=== PATIENT | female | born 1995 | race African-American/Black ===

== ENCOUNTER 2023-12-03 11:42 | Outpatient (CLI) | payer OTHER, SELFPAY ==
[2023-12-03 12:41] LABS: Basophils Percent Auto 0.4 % (0.2-1.2); Eosinophils Absolute Auto 0.1 K/mm3 (0-0.3); Eosinophils Percent Auto 1.5 % (0-4.4); Hematocrit 39.4 % (37.0-47.0); Hemoglobin 12.3 g/dL (12.0-15.0); Immature Granulocyte Absolute 0.02 K/mm3 (0.00-0.031); Immature Granulocyte Percent A 0.3 % (0-0.5); Lymphocytes Absolute Auto 1.43 K/mm3 (0.9-3.2); Lymphocytes Percent Auto 19.6 % (18.3-44.2); Mean Corpuscular HGB Conc 31.2 g/dl (32-36); Mean Corpuscular Hemoglobin 26.9 pg (26-34); Mean Corpuscular Volume 86.2 fl (80-100); Mean Platelet Volume 9.5 fl (7.4-10.4); Monocytes Absolute Auto 0.4 K/mm3 (0.1-0.6); Monocytes Percent Auto 5.5 % (2.6-8.5); Neutrophils Absolute Auto 5.3 K/mm3 (1.3-6.7); Neutrophils Percent Auto 72.7 % (45.5-73.1); Platelet Count Result 285 k/mm3 (150-375); Red Blood Count 4.57 M/mm3 (4.2-5.4); Red Cell Distribution Width 13.1 % (11.5-14.5); White Blood Count 7.3 K/mm3 (4.5-10.0)
[2023-12-03 13:32] LABS: HIV 1/2 Ab P24 Ag Result Negative (Negative)
[2023-12-03 13:52] LABS: Hepatitis B Surface Antigen Negative (Negative); Rubella IgG Antibody 41.2 IU/ML
[2023-12-04 12:59] LABS: Rapid Plasma Reagin Non-Reactive (NonReactive)
== END 2023-12-03 11:43 | disposition home or self-care (01) ==
PROVIDERS: PCP Family Medicine; Visit Provider Obstetrics & Gynecology
DX: N91.2 Amenorrhea, unspecified (principal)
CPT/HCPCS: 36415; 84702; 85025; 85660; 86592; 86703; 86762; 86787; 87086; 87340; G0432

== ENCOUNTER 2023-12-18 16:57 | Outpatient (CLI) | payer OTHER, SELFPAY ==
[2023-12-30 17:47] LABS: CF Result NEGATIVE (NEGATIVE); Ethnicity NG
[2024-01-02 16:22] LABS: SMA Results Received Yes
== END 2023-12-18 16:58 | disposition home or self-care (01) ==
LOC: ANHLAB 16:58
PROVIDERS: PCP Family Medicine; Visit Provider Obstetrics & Gynecology
DX: N91.2 Amenorrhea, unspecified (principal)
CPT/HCPCS: 36415; 81220; 81329; 86644; 86747; 86850; 86900; 86901

== ENCOUNTER 2024-02-27 14:51 | Outpatient (CLI) | payer OTHER, SELFPAY ==
--- NOTE | ~2024-02-27 | US_ITS ---
EXAMINATION: US OB /maternal detail DATE: 02/27/2024 15:23 INDICATION: Encounter for supervision of normal . TECHNIQUE: Real-time ultrasound of the pelvis was performed. COMPARISON: Ultrasound 12/17/2023 FINDINGS: There is a single living fetus in vertex presentation. The placenta is posterior. heart rate i s 168 beats per minute (bpm). The cervical length is 4.2 cm on transabdominal images, which is normal . The amniotic fluid volume is subjectively normal. The following biometric data were obtained: Biparietal diameter (BPD): 4.6 cm; head circumference (HC): 16.9 cm; abdominal circumference (AC): 13 .8 cm; femur length (FL): 3.1 cm. These measurements are concordant. Estimated weight is 289 g +/- 43 g, which correlates with the 35th percentile when 07/19/24 is u sed as estimated date of delivery. As single measurements, these parameters are each equal to the following estimated gestational ages: BPD: 19 weeks 6 days. HC: 19 weeks 4 days. AC: 19 weeks 2 days. FL: 19 weeks 3 days. estimated gestational age based solely on measurements from this exam is 19 weeks 4 days +/- 1 weeks 3 days. The cerebral ventricles, cerebellum, cisterna magna, nuchal fold, and visualized portions of the spin e are normal. The heart is normal. The diaphragm, stomach, kidneys, and bladder are normal. There are two umbilical arteries to yield a 3-vessel cord. The cord insertion is normal. IMPRESSION: 1. Single living fetus in vertex presentation. 2. Estimated weight is 289 g +/- 43 g, which correlates with the 35th percentile when 07/19/24 is used as estimated date of delivery. 3. Normal anatomic survey. Reviewed, dictated and finalized at location E. IMPRESSION: 1. Single living fetus in vertex presentation. 2. Estimated weight is 289 g +/- 43 g, which correlates with the 35th pe rcentile when 07/19/24 is used as estimated date of delivery. 3. Normal anatomic survey.
== END 2024-02-27 14:52 ==
PROVIDERS: PCP Family Medicine; Visit Provider Student in an Organized Health Care Education/Training Program
DX: Z34.90 Encounter for supervision of normal pregnancy, unspecified, unspecified trimester (principal)
CPT/HCPCS: 76805

== ENCOUNTER 2024-04-26 14:37 | Outpatient (CLI) | payer OTHER, SELFPAY ==
[2024-04-26 16:12] LABS: Basophils Percent Auto 0.3 % (0.2-1.2); Eosinophils Absolute Auto 0.1 K/mm3 (0-0.3); Eosinophils Percent Auto 0.8 % (0-4.4); Hematocrit 32.2 % (37.0-47.0); Hemoglobin 10.4 g/dL (12.0-15.0); Immature Granulocyte Absolute 0.17 K/mm3 (0.00-0.031); Immature Granulocyte Percent A 1.8 % (0-0.5); Lymphocytes Absolute Auto 1.05 K/mm3 (0.9-3.2); Mean Corpuscular HGB Conc 32.3 g/dl (32-36); Mean Corpuscular Hemoglobin 28.4 pg (26-34); Monocytes Absolute Auto 0.3 K/mm3 (0.1-0.6); Monocytes Percent Auto 3.6 % (2.6-8.5); Neutrophils Absolute Auto 7.9 K/mm3 (1.3-6.7); Neutrophils Percent Auto 82.5 % (45.5-73.1); Platelet Count Result 222 k/mm3 (150-375); Red Blood Count 3.66 M/mm3 (4.2-5.4); Red Cell Distribution Width 13.9 % (11.5-14.5); White Blood Count 9.5 K/mm3 (4.5-10.0)
[2024-04-26 16:38] LABS: Glucose 1 Hour PP 50gm Dose 164 mg/dL
[2024-04-26 17:39] LABS: HIV 1/2 Ab P24 Ag Result Negative (Negative)
[2024-04-27 08:41] LABS: Rapid Plasma Reagin Non-Reactive (NonReactive)
== END 2024-04-26 14:38 | disposition home or self-care (01) ==
LOC: ANHLAB 14:41
PROVIDERS: PCP Family Medicine; Visit Provider Obstetrics & Gynecology
DX: Z34.90 Encounter for supervision of normal pregnancy, unspecified, unspecified trimester (principal); Z3A.00 Weeks of gestation of pregnancy not specified
CPT/HCPCS: 36415; 82947; 85025; 86592; 86703; G0432

== ENCOUNTER 2024-04-29 07:25 | Outpatient (CLI) | payer OTHER, SELFPAY ==
[2024-04-29 08:01] LABS: Glucose Fasting Gestational 95 mg/dL (>/=95)
[2024-04-29 09:21] LABS: Glucose 1 Hour Gest 195 mg/dL (>/=180)
[2024-04-29 11:12] LABS: Glucose 2 Hour Gest 191 mg/dL (>/= 155)
[2024-04-29 11:51] LABS: Glucose 3 Hour Gest 114 mg/dL (>/=140)
== END 2024-04-29 07:26 | disposition home or self-care (01) ==
LOC: ANHLAB 07:27
PROVIDERS: PCP Family Medicine; Visit Provider Obstetrics & Gynecology
DX: Z34.90 Encounter for supervision of normal pregnancy, unspecified, unspecified trimester (principal); Z3A.00 Weeks of gestation of pregnancy not specified
CPT/HCPCS: 36415; 82951; 82952

== ENCOUNTER 2024-05-26 16:36 | Outpatient (RCR) | payer OTHER, SELFPAY ==
--- NOTE | ~2024-05-26 | US_ITS ---
EXAMINATION: US OB BPP wo non-stress DATE: 05/26/2024 17:46 INDICATION: Fall during third trimester . Possible cardiac decelerations on nonstress exam. TECHNIQUE: Real-time pelvic ultrasound was performed. The interpreting radiologist was not present fo r the study. COMPARISON: None. FINDINGS: There is a single living fetus in vertex presentation. The placenta is posterior. heart rate i s variable with mean of 136 (108-170) beats per minute (bpm). Biophysical profile performed by the technologist: breathing (30 sec sustained breathing in 30 minutes): 2 out of 2 movement (3 gross body movements in 30 minutes): 2 out of 2 tone (one episode of qephrii-ifnwaqzyd-uplmpht limb movement): 2 out of 2 Amniotic fluid pocket (2 cm): 2 out of 2 Total score: 8 out of 8 IMPRESSION: 1. Single living fetus in vertex presentation with highly variable heart rate of 108-170 bpm. 2. Biophysical profile 8 out of 8. Reviewed, dictated and finalized at location A.
[2024-05-26 17:16] VITALS: BP 113/62; PULSE 78
== END 2024-08-16 09:55 | disposition home or self-care (01) ==
LOC: ANHOBOP 16:36
PROVIDERS: PCP Family Medicine; Visit Provider Obstetrics & Gynecology
DX: O36.8330 Maternal care for abnormalities of the fetal heart rate or rhythm, third trimester, not applicable or unspecified (principal)
CPT/HCPCS: 59025; 76819

== ENCOUNTER 2024-06-12 08:02 | Observation (INO) | payer OTHER, SELFPAY ==
[2024-06-12 08:30] VITALS: BP 123/71; PULSE 86
--- NOTE | 2024-06-12 08:44 | OBADM ---
This patient, Emily Glez, admitted to the OB room OB Post 116 for observation. Patient/family oriented to hospital policies and general routines including ID bracelet, bed and alarms, visiting hours, pain management, procedures, bathroom and other care routines, personal items, smoking policy, room service/diet, and visiting hours. Patient/Family are encouraged to report perceived risks to care and to ask questions if they do not understand what they are told or what they should do.
[2024-06-12 09:15] LABS: OBXCEM ROM Plus Negative
--- NOTE | 2024-07-01 13:43 | PM.OBTRLD ---
OB - Triage/Final Diagnosis Visit Information Comments/Additional reasons for admission: I have assessed the risk for this patient, Emily Rodriguez, and determined that she would benefit from observation care. Evaluation Laboratory results: Laboratory Tests 06/12/24 08:48 Membranes Rupture Rom plus negative Final Diagnosis (1) Threatened premature labor: Code(s): O47.00 - False labor before 37 completed weeks of gestation, unspecified trimester Status: Acute
== END 2024-06-12 09:15 | disposition home or self-care (01) ==
PROVIDERS: Admitting Provider Obstetrics & Gynecology; PCP Family Medicine; Visit Provider Obstetrics & Gynecology
DX: O47.00 False labor before 37 completed weeks of gestation, unspecified trimester (principal)
CPT/HCPCS: 84112; G0378; G0379

== ENCOUNTER 2024-06-15 13:35 | Emergency (ER) | payer OTHER, SELFPAY ==
[2024-06-15 14:06] VITALS: BP 110/75; PULSE 99; RESP 16; TEMP 36.3; O2SAT 99
[2024-06-15 14:50] LABS: EDINFLUASCREEN Negative; EDINFLUBSCREEN Negative; EDSTREPNEGPOS1 Negative
--- NOTE | 2024-06-19 08:31 | ED.URI ---
HPI - URI/Sore Throat General Chief Complaint: Upper Respiratory Infection Stated Complaint: sore throat/ heachache/ body ache Time Seen by Provider: 06/15/24 14:21 Source: patient, RN notes reviewed and old records reviewed Mode of arrival: ambulatory Limitations: no limitations History of Present Illness HPI Narrative: 29-year-old female to [facility] with complaint of body aches, chills headache, sore throat, congestion for 8 days. Patient reports that she was initially febrile but been without fever for the 48 hours. Patient has attempted to treat her symptoms home with Tylenol with some relief. Patient is currently 35 weeks . Patient denies any difficulties with her and states that she sees her OBGYN regularly. Patient denies shortness of breath, abdominal pain, decreased movement, urinary changes, bowel changes, cough, difficulty swallowing. Patient is able to tolerate fluids by mouth. Patient resting in exam room in no acute distress. Patient appears tired and uncomfortable. Respirations even and nonlabored. Patient able to speak in full sentences without difficulty. Related Data Home Medications Medication Instructions Recorded Confirmed albuterol sulfate 90 mcg/actuation 1 inh inhalation Q4-6H PRN 03/03/23 06/15/24 breath activated powder inhaler Shortness Of Breath Or Wheezing buspirone 5 mg tablet 5 mg PO BID 03/03/23 06/15/24 hydroxyzine HCl 25 mg tablet 25 mg PO BID PRN Anxiety 03/03/23 06/15/24 famotidine 20 mg tablet (Pepcid) 20 mg PO DAILY 04/29/24 06/15/24 magnesium oxide 400 mg PO DAILY 04/29/24 06/15/24 Allergies Allergy/AdvReac Type Severity Reaction Status Date / Time No Known Allergies Allergy Verified 06/09/24 15:50 Review of Systems Review of Systems: All systems reviewed & are unremarkable except as noted in HPI and below Constitutional: Constitutional: Reports as per HPI, Reports body ache(s), Reports chills and Reports headache(s) Eyes: Eyes: Reports no additional eye complaints ENT: Reports as per HPI and Reports sore throat Cardiovascular: Cardiovascular: Reports no additional cardiovascular complaints, Denies chest pain and Denies dyspnea Respiratory: Respiratory: Reports no additional respiratory complaints, Denies cough and Denies dyspnea Musculoskeletal: Musculoskeletal: Reports no additional musculoskeletal complaints Neurologic: Reports system reviewed and no additional complaints, except as documented Psychiatric: Psychiatric: Reports no additional psychiatric complaints PMFSH Past Medical History Medical History Anxiety and depression Asthma Fibromyalgia Family History Family History Grandparent Carcinoma of colon maternal grandmother Cervical cancer maternal grandmother Mother Diabetes mellitus Hepatitis C Father Glaucoma Social History Social History Smoking status: Never smoker Second hand tobacco smoke exposure: No Alcohol intake: former Alcohol use details: 3-4 month Substance use: former Substance use type: marijuana Other substance usage details: 1-2 month Last use: 07/2023 Do You Feel Safe in your Home?: Yes Lack of Transportation: No Lack of Food: Never True Current Housing: I Have Housing Concerned About Future Housing: No Difficulty Paying Gas/Electric Bills: No Difficulty Paying for Meds: No Currently Unemployed: No Education: Bachelor's Degree Difficulty w/ Childcare or Family Care: Decline to Answer Living arrangements: other Additional living arrangements comments: engaged Occupation/Education: occupation 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
== END 2024-06-15 15:32 | disposition home or self-care (01) ==
PROVIDERS: Emergency Provider Nurse Practitioner Family; PCP Family Medicine
DX: O98.513 Other viral diseases complicating pregnancy, third trimester (principal); U07.1 COVID-19; O99.513 Diseases of the respiratory system complicating pregnancy, third trimester; J45.909 Unspecified asthma, uncomplicated; O99.343 Other mental disorders complicating pregnancy, third trimester; F41.9 Anxiety disorder, unspecified; F32.A Depression, unspecified; O99.891 Other specified diseases and conditions complicating pregnancy; M79.7 Fibromyalgia; Z3A.35 35 weeks gestation of pregnancy
CPT/HCPCS: 87426; 87804; 87880; 99213; G0463

== ENCOUNTER 2024-06-16 16:51 | Emergency (ER) | payer OTHER, SELFPAY ==
--- NOTE | ~2024-06-16 | XR_ITS ---
EXAMINATION: XR chest 1V DATE: 06/16/2024 20:39 INDICATION: COVID-19 positive. Third trimester of . TECHNIQUE: A single frontal view of the chest was obtained. COMPARISON: None. FINDINGS: There is no pneumonia, pleural effusion, or pneumothorax. The heart size is normal. IMPRESSION: 1. No acute cardiopulmonary disease. Reviewed, dictated and finalized at location A.
[2024-06-16 16:54] VITALS: BP 114/72; PULSE 104; RESP 18; TEMP 36.7; O2SAT 100
[2024-06-16 19:24] VITALS: BP 113/76; PULSE 103; RESP 20; TEMP 36.8; O2SAT 100
--- NOTE | 2024-06-16 19:47 | ECG_ITS ---
Test Date: 2024-06-16 22:25:31 Measurements Intervals [place] Rate: 96 P: 69 [place]: 155 QRS: 76 QRSD: 91 T: 5 QT: 358 QTc: 455 Interpretive Statements SINUS RHYTHM BORDERLINE ST-T WAVE ABNORMALITY- INFERIOR LEADS BORDERLINE ECG No previous ECG available for comparison Electronically Signed On 06-17-2024 05:26:13 CDT by [place] Ansari D.O.
[2024-06-16] MEDS: ACETAMINOPHEN 500 MG TABLET 1000 MG PO (21:04)
[2024-06-16] MEDS: SODIUM CHLORIDE 0.9% IV 2,000 ML 999 ML IV CONT (21:30)
[2024-06-16 21:32] LABS: Basophils Percent Auto 0.5 % (0.2-1.2); Eosinophils Absolute Auto 0.3 K/mm3 (0-0.3); Eosinophils Percent Auto 3.9 % (0-4.4); Hematocrit 37.4 % (37.0-47.0); Hemoglobin 12.1 g/dL (12.0-15.0); Immature Granulocyte Percent A 1.1 % (0-0.5); Lymphocytes Absolute Auto 0.96 K/mm3 (0.9-3.2); Mean Corpuscular HGB Conc 32.4 g/dl (32-36); Mean Corpuscular Hemoglobin 28.5 pg (26-34); Mean Corpuscular Volume 88.2 fl (80-100); Mean Platelet Volume 10.3 fl (7.4-10.4); Monocytes Absolute Auto 0.5 K/mm3 (0.1-0.6); Monocytes Percent Auto 5.4 % (2.6-8.5); Neutrophils Absolute Auto 6.8 K/mm3 (1.3-6.7); Neutrophils Percent Auto 78.1 % (45.5-73.1); Platelet Count Result 164 k/mm3 (150-375); Red Blood Count 4.24 M/mm3 (4.2-5.4); Red Cell Distribution Width 14.5 % (11.5-14.5); White Blood Count 8.7 K/mm3 (4.5-10.0)
[2024-06-16 21:43] LABS: Alanine Aminotransferase 18 U/L (6-35); Albumin Level 4.1 g/dL (3.5-5.1); Alkaline Phosphatase 125 U/L (38-126); Anion Gap 12 mmol/L (4-12); Aspartate Amino Transferase 28 U/L (14-36); Bilirubin,Total 0.8 mg/dL (0.2-1.3); Blood Urea Nitrogen 5 mg/dL (7-17); Calcium 9.4 mg/dL (8.4-10.2); Carbon Dioxide 20 mmol/L (22-30); Chloride 99 mmol/L (98-107); Estimated CRCL calculation 133 ml/min; Estimated Glomerular Filt Rate > 60; Glucose 71 mg/dL (65-110); Potassium 3.8 mmol/L (3.4-5.0); Sodium 131 mmol/L (137-145)
[2024-06-16 21:44] LABS: Add Urine Microscopic? YES; Appearance Urine Cloudy (Clear); Bacteria Urine 3+ /hpf; Bilirubin Urine Negative (Negative); Blood Urine Negative (Negative); Budding Yeast Urine Present /hpf; Color Urine Yellow (Yellow); Glucose Urine UA Negative (Negative); Ketones Urine 3+ mg/dL (Negative); Leukocyte Esterase Ur 1+ LEU/UL (Negative); Need Manual Microscopic Reviewed; Nitrate Urine Negative (Negative); Non Pathogenic Casts 0-2; Protein Urine Negative (Negative); Specific Grav Ur 1.015 (1.001-1.035); Squamous Epithelial Cell Urine Occasional /hpf (Few); Urobilinogen Urine 0.2 mg/dL (<2.0)
[2024-06-16 22:32] VITALS: BP 121/78; PULSE 88; RESP 20; TEMP 37.1; O2SAT 98
--- NOTE | 2024-06-16 23:28 | ED.GENADULT ---
HPI - General Adult General Chief complaint: Upper Respiratory Infection Stated complaint: COVID+ yesterday Time Seen by Provider: 06/16/24 19:46 History of Present Illness HPI narrative: This is a 29-year-old female 353 days gestation presenting for positive COVID. She has not feeling well 4 days. She then got RSV Tdap vaccines for . She then was diagnosed with COVID several days later. Symptoms include body aches congestion dyspnea on exertion and shallow breathing. She has been febrile but not for the last day or 2. She has been taking Tylenol with relief. She has also had diarrhea but no nausea vomiting. No lower abdominal pain vaginal bleeding got fluids. She feels the baby moving is normal. Related Data Home Medications Medication Instructions Recorded Confirmed albuterol sulfate 90 mcg/actuation 1 inh inhalation Q4-6H PRN 03/03/23 06/15/24 breath activated powder inhaler Shortness Of Breath Or Wheezing buspirone 5 mg tablet 5 mg PO BID 03/03/23 06/15/24 hydroxyzine HCl 25 mg tablet 25 mg PO BID PRN Anxiety 03/03/23 06/15/24 famotidine 20 mg tablet (Pepcid) 20 mg PO DAILY 04/29/24 06/15/24 magnesium oxide 400 mg PO DAILY 04/29/24 06/15/24 Allergies Allergy/AdvReac Type Severity Reaction Status Date / Time No Known Allergies Allergy Verified 06/09/24 15:50 [facility] Past Medical History Medical History Anxiety and depression Asthma Fibromyalgia Family History Family History Grandparent Carcinoma of colon maternal grandmother Cervical cancer maternal grandmother Mother Diabetes mellitus Hepatitis C Father Glaucoma Social History Social History Smoking status: Never smoker Second hand tobacco smoke exposure: No Alcohol intake: former Alcohol use details: 3-4 month Substance use: former Substance use type: marijuana Other substance usage details: 1-2 month Last use: 07/2023 Do You Feel Safe in your Home?: Yes Lack of Transportation: No Lack of Food: Never True Current Housing: I Have Housing Concerned About Future Housing: No Difficulty Paying Gas/Electric Bills: No Difficulty Paying for Meds: No Currently Unemployed: No Education: Bachelor's Degree Difficulty w/ Childcare or Family Care: Decline to Answer Living arrangements: other Additional living arrangements comments: engaged Occupation/Education: occupation 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 Head: atraumatic. EYES: EOMI, NOSE: Atraumatic NECK: Trachea midline RESPIRATORY: No increased rate of breathing clear to auscultation CARDIOVASCULAR: RRR, ABDOMINAL: Gravid soft nontender MUSCULOSKELETAl: No obvious deformities NEURO: Alert. Moving 4/4 extremities SKIN:: Warm, dry. Normal color PSYCHIATRIC: Normal affect Course Vital Signs Vital signs: Vital Signs Temperature 98.1 F 06/16/24 16:54 Pulse Rate 104 H 06/16/24 16:54 Respiratory Rate 18 06/16/24 16:54 Blood Pressure 114/72 06/16/24 16:54 Pulse Oximetry 100 06/16/24 16:54 Oxygen Delivery Room Air 06/16/24 16:54 Temperature 98.8 F 06/16/24 22:32 Pulse Rate 88 06/16/24 22:32 Respiratory Rate 20 06/16/24 22:32 Blood Pressure 121/78 06/16/24 22:32 Pulse Oximetry 98 06/16/24 22:32 Oxygen Delivery Room Air 06/16/24 21:16 Medical Decision Making MDM Narrative Medical decision making narrative: -Course: 29-year-old female presenting with viral symptoms. She was given fluid resuscitation and Tylenol with improvement. Chest x-ray Chest Urine indicative infection given her she will be treated for U
[2024-06-16 23:40] VITALS: PULSE 94; RESP 20; O2SAT 98
[2024-06-17 00:13] LABS: Influenza A QL RT-PCR Negative (Negative); Influenza B QL RT-PCR Negative (Negative); RSV RNA, RT-PCR Negative (Negative); SARS-CoV-2 RNA PCR Positive (Negative)
== END 2024-06-16 23:40 | disposition home or self-care (01) ==
PROVIDERS: Emergency Provider Emergency Medicine; PCP Family Medicine
DX: O98.519 Other viral diseases complicating pregnancy, unspecified trimester (principal); U07.1 COVID-19
CPT/HCPCS: 36415; 71045; 80053; 81001; 85025; 87086; 87637; 93005; 96360; 96361; 99283; A9270; J7030

== ENCOUNTER 2024-06-28 15:17 | Observation (INO) | payer OTHER, SELFPAY ==
[2024-06-28 16:00] VITALS: TEMP 37.4
[2024-06-28 16:21] VITALS: BMI 31.5
[2024-06-28 16:21] LABS: OBXCEM ROM Plus Negative (Negative)
--- NOTE | 2024-06-28 16:21 | OBADM ---
This patient, Emily Rodriguez, admitted to the OB room Labor/Delivery/Recovery 106 for observation. Patient/family oriented to hospital policies and general routines including ID bracelet, bed and alarms, visiting hours, pain management, procedures, bathroom and other care routines, personal items, smoking policy, room service/diet, and visiting hours. Patient/Family are encouraged to report perceived risks to care and to ask questions if they do not understand what they are told or what they should do.
[2024-06-28 16:30] VITALS: BP 115/75; PULSE 100
[2024-06-28 16:45] VITALS: BP 123/78; PULSE 96
--- NOTE | 2024-06-29 08:13 | PM.OBTRLD ---
OB - Triage/Final Diagnosis Visit Information Comments/Additional reasons for admission: I have assessed the risk for this patient, Emily Rodriguez, and determined that she would benefit from observation care. Evaluation Laboratory results: Laboratory Tests 06/28/24 16:02 Membranes Rupture Rom plus negative Vital signs: Vital Signs - 24 hr 06/28/24 16:00 06/28/24 16:30 06/28/24 16:45 Temperature 99.4 F Pulse Rate 100 96 Blood Pressure 115/75 123/78 Final Diagnosis (1) Abdominal pain affecting : Code(s): O26.899 - Other specified related conditions, unspecified trimester; R10.9 - Unspecified abdominal pain Status: Acute
== END 2024-06-28 17:40 | disposition home or self-care (01) ==
PROVIDERS: Admitting Provider Obstetrics & Gynecology; PCP Family Medicine; Visit Provider Obstetrics & Gynecology
DX: O26.893 Other specified pregnancy related conditions, third trimester (principal); R10.9 Unspecified abdominal pain; Z3A.37 37 weeks gestation of pregnancy
CPT/HCPCS: 84112; G0378; G0379

== ENCOUNTER 2024-07-10 08:07 | Inpatient (IN) | payer OTHER, SELFPAY ==
[2024-07-10] VITALS (115 sets, daily range): BP systolic 103–141; BP diastolic 53–94; PULSE 77–147; RESP 18; TEMP 36.2–37.6; O2SAT 92–100; BMI 31.3
[2024-07-10 09:48] LABS: Basophils Percent Auto 0.3 % (0.2-1.2); Eosinophils Absolute Auto 0.1 K/mm3 (0-0.3); Eosinophils Percent Auto 1.6 % (0-4.4); Hematocrit 36.2 % (37.0-47.0); Hemoglobin 12.4 g/dL (12.0-15.0); Immature Granulocyte Absolute 0.05 K/mm3 (0.00-0.031); Immature Granulocyte Percent A 0.6 % (0-0.5); Lymphocytes Absolute Auto 1.42 K/mm3 (0.9-3.2); Lymphocytes Percent Auto 17.9 % (18.3-44.2); Mean Corpuscular HGB Conc 34.3 g/dl (32-36); Mean Corpuscular Hemoglobin 29.7 pg (26-34); Mean Corpuscular Volume 86.6 fl (80-100); Mean Platelet Volume 11.4 fl (7.4-10.4); Monocytes Absolute Auto 0.5 K/mm3 (0.1-0.6); Monocytes Percent Auto 6.8 % (2.6-8.5); Neutrophils Absolute Auto 5.8 K/mm3 (1.3-6.7); Neutrophils Percent Auto 72.8 % (45.5-73.1); Platelet Count Result 184 k/mm3 (150-375); Red Blood Count 4.18 M/mm3 (4.2-5.4); Red Cell Distribution Width 14.6 % (11.5-14.5); White Blood Count 7.9 K/mm3 (4.5-10.0)
[2024-07-10 10:01] LABS: Alanine Aminotransferase 15 U/L (6-35); Albumin Level 3.8 g/dL (3.5-5.1); Alkaline Phosphatase 110 U/L (38-126); Anion Gap 8 mmol/L (4-12); Aspartate Amino Transferase 29 U/L (14-36); Bilirubin,Total 0.5 mg/dL (0.2-1.3); Blood Urea Nitrogen 8 mg/dL (7-17); Calcium 9.6 mg/dL (8.4-10.2); Carbon Dioxide 20 mmol/L (22-30); Chloride 106 mmol/L (98-107); Estimated CRCL calculation 131 ml/min; Estimated Glomerular Filt Rate > 60; Glucose 80 mg/dL (65-110); Potassium 3.8 mmol/L (3.4-5.0); Sodium 134 mmol/L (137-145)
--- NOTE | 2024-07-10 10:03 | PM.OBPNLAB ---
Pain Control Date/time seen: 07/10/24 10:03 Comments: Cat 1, irreg ctx, cervix /-, small forebag AROM, thick mec.
[2024-07-10 10:05] LABS: Uric Acid 5.6 mg/dL (2.5-7.5)
--- NOTE | 2024-07-10 10:08 | P.HP_ITS ---
H&P: HPI History of Present Illness Date/Time: 07/10/24 10:08 Chief Complaint: Leaking Narrative: She presented with c/o leaking at 0100. Cervix 3 cm, irreg ctx. No PIH symptoms. PNC notes reviewed. GBS neg. Review of Systems Review of Systems: All systems reviewed & are unremarkable except as noted in HPI and below Constitutional: Constitutional: Reports no additional constitutional complaints and Denies headache(s) Eyes: Eyes: Denies spots in vision ENT: Reports system reviewed and no additional complaints, except as documented and Denies headache(s) Cardiovascular: Cardiovascular: Denies chest pain and Denies dyspnea Respiratory: Respiratory: Denies dyspnea Gastrointestinal: Gastrointestinal: Reports no additional gastrointestinal complaints Genitourinary: Genitourinary: Reports amenorrhea Musculoskeletal: Musculoskeletal: Reports no additional musculoskeletal complaints Integumentary/Breasts: Skin/Breast: Denies breast mass and Denies rash Neurologic: Denies headache(s) Psychiatric: Psychiatric: Reports no additional psychiatric complaints PMFSH Past Medical History Medical History Anxiety and depression Asthma Fibromyalgia Family History Family History Grandparent Cervical cancer maternal grandmother Carcinoma of colon maternal grandmother Mother Diabetes mellitus Hepatitis C Father Glaucoma Sibling Glaucoma Hypertension Social History Social History Smoking status: Never smoker Second hand tobacco smoke exposure: No Alcohol intake: former Alcohol use details: 3-4 month Substance use: never Substance use type: marijuana Other substance usage details: 1-2 month Last use: 07/2023 Do You Feel Safe in your Home?: Yes Lack of Transportation: No Lack of Food: Never True Current Housing: I Have Housing Concerned About Future Housing: No Difficulty Paying Gas/Electric Bills: No Difficulty Paying for Meds: No Currently Unemployed: No Education: Bachelor's Degree Difficulty w/ Childcare or Family Care: No Living arrangements: other Additional living arrangements comments: engaged Occupation/Education: occupation 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 Gender identity (if verbalized by the patient): Female Sexual Orientation (if Verbalized by the Patient): Bisexual Spiritual care concerns: No Meds Home Medications and Allergies Home Medications Medication Instructions Recorded Confirmed Type albuterol sulfate 90 mcg/actuation 1 inh inhalation Q4-6H PRN 03/03/23 07/07/24 History breath activated powder inhaler Shortness Of Breath Or Wheezing buspirone 5 mg tablet 5 mg PO BID 03/03/23 07/07/24 History hydroxyzine HCl 25 mg tablet 25 mg PO BID PRN Anxiety 03/03/23 07/07/24 History famotidine 20 mg tablet (Pepcid) 20 mg PO DAILY 04/29/24 07/07/24 History sertraline 50 mg tablet (Zoloft) 50 mg PO DAILY #60 tabs 05/03/24 07/07/24 Rx triamcinolone acetonide 0.1 % 1 applic topical BID #80 grams 06/01/24 07/07/24 Rx topical ointment insulin glargine 100 unit/mL 6 unit subcut HS 07/02/24 07/07/24 History subcutaneous solution (Lantus U-100 Insulin) Allergies Allergy/AdvReac Type Severity Reaction Status Date / Time adhesive AdvReac Intermediate Hives Verified 07/07/24 17:08 latex AdvReac Mild Hives Verified 07/07/24 17:08 Vital Signs Vital Signs - 24 hr 07/10/24 08:46 07/10/24 09:01 07/10/24 09:16 Temperature Pulse Rate 90 97 98 Blood Pressure 122/83 124/78 115/76 Oxygen Delivery 07/10/24 09:31 07/10/24 09:47 07/10/24 10:01 Temperature Pulse Rate 90 95 95 Blood Pressure 110/90 120/85 113/71 Oxygen Delivery 07/10/24 09:59 07/10/24 09:26 Temperature 98.1 F Pulse Rate Blood Pressure Oxygen Delivery Room Air Exam Const: General: no acute distress Eyes: General: appearance normal, both eyes and all related structures Resp: Effort & Inspection: normal respiratory effort Cardio: Rate: regular rate GI: Other: Gravid no fundal tenderness no right upper quadrant pain Skin: General skin exam: no rashes or lesions noted Neuro: Cognition (Neuro): normal cognition Extrem: General: normal to inspection Psych: Mental Status: mental status grossly normal H&P: Results Labs Labs: Short CBC 07/10/24 Range/Units 09:19 WBC 7.9 (4.5-10.0) K/mm3 Hgb 12.4 (12.0-15.0) g/dL Hct 36.2 L (37.0-47.0) % Plt Count 184 (150-375) k/mm3 BMP 07/10/24 09:19 Sodium 134 L Potassium 3.8 Chloride 106 Carbon Dioxide 20 L BUN 8 Creatinine 0.60 L Glucose 80 Calcium 9.6 Liver Function 07/10/24 Range/Units 09:19 Total Bilirubin 0.5 (0.2-1.3) mg/dL AST 29 (14-36) U/L ALT 15 (6-35) U/L Alkaline Phosphatase 110 (38-126) U/L Albumin 3.8 (3.5-5.1) g/dL Assessment and Plan Assessment and plan (1) Spontaneous rupture of membranes: Status: Acute Assessment and Plan: 1. Admit 2. Expectant management, may need pitocin augmentation if prolongation of labor.
[2024-07-10 10:35] LABS: HIV 1/2 Ab P24 Ag Result Negative (Negative)
[2024-07-10] MEDS: LACTATED RINGERS 1,000 ML 125 ML IV CONT ×2 (10:58→14:03)
[2024-07-10] MEDS: OXYTOCIN 30 UNITS/NS 500 ML 30 UNITS/500 ML BAG IV CONT (10:59)
[2024-07-10 11:23] LABS: Rapid Plasma Reagin Non-Reactive (NonReactive)
[2024-07-10] MEDS: ONDANSETRON INJ 4 MG/2 ML VIAL IV PUSH (12:03)
--- NOTE | 2024-07-10 12:30 | P.PNAN_ITS ---
Anes - Initial Pre Proc Eval Date/Time: 07/10/24 12:30 Surgeon: Ana M Porras MD Pre Op Diagnosis: Leaking Patient Data Age: 29 Gender: F Height: 1.68 m Weight: 88 kg Last Vital Signs Temp 36.7 C 07/10/24 09:59 Pulse 85 07/10/24 12:28 BP 133/76 07/10/24 12:28 Pulse Ox 100 07/10/24 12:27 O2 Del Method Room Air 07/10/24 09:26 Allergies Allergy/AdvReac Type Severity Reaction Status Date / Time adhesive AdvReac Intermediate Hives Verified 07/07/24 17:08 latex AdvReac Mild Hives Verified 07/07/24 17:08 Home Medications Medication Instructions Recorded Confirmed Type albuterol sulfate 90 mcg/actuation 1 inh inhalation Q4-6H PRN 03/03/23 07/07/24 History breath activated powder inhaler Shortness Of Breath Or Wheezing buspirone 5 mg tablet 5 mg PO BID 03/03/23 07/07/24 History hydroxyzine HCl 25 mg tablet 25 mg PO BID PRN Anxiety 03/03/23 07/07/24 History famotidine 20 mg tablet (Pepcid) 20 mg PO DAILY 04/29/24 07/07/24 History sertraline 50 mg tablet (Zoloft) 50 mg PO DAILY #60 tabs 05/03/24 07/07/24 Rx triamcinolone acetonide 0.1 % 1 applic topical BID #80 grams 06/01/24 07/07/24 Rx topical ointment insulin glargine 100 unit/mL 6 unit subcut HS 07/02/24 07/07/24 History subcutaneous solution (Lantus U-100 Insulin) Laboratory Tests 07/10/24 07/10/24 09:19 09:20 WBC 7.9 K/mm3 (4.5-10.0) RBC 4.18 L M/mm3 (4.2-5.4) Hgb 12.4 g/dL (12.0-15.0) Hct 36.2 L % (37.0-47.0) MCV 86.6 fl (80-100) MCH 29.7 pg (26-34) MCHC 34.3 g/dl (32-36) RDW 14.6 H % (11.5-14.5) Plt Count 184 k/mm3 (150-375) MPV 11.4 H fl (7.4-10.4) Immature Gran % (Auto) 0.6 H % (0-0.5) Neut % (Auto) 72.8 % (45.5-73.1) Lymph % (Auto) 17.9 L % (18.3-44.2) [place] % (Auto) 6.8 % (2.6-8.5) Eos % (Auto) 1.6 % (0-4.4) Baso % (Auto) 0.3 % (0.2-1.2) Lymph # (Auto) 1.42 K/mm3 (0.9-3.2) [place] # (Auto) 0.5 K/mm3 (0.1-0.6) Eos # (Auto) 0.1 K/mm3 (0-0.3) Baso # (Auto) 0.0 K/mm3 (0.0-0.1) Abs Immat Gran (auto) 0.05 H K/mm3 (0.00-0.031) Absolute Neuts (auto) 5.8 K/mm3 (1.3-6.7) Absolute Nucleated RBC 0.000 K/mm3 (0.0-0.012) Nucleated RBC % 0.0 % (0.0-0.2) Sodium 134 L mmol/L (137-145) Potassium 3.8 mmol/L (3.4-5.0) Chloride 106 mmol/L (98-107) Carbon Dioxide 20 L mmol/L (22-30) Anion Gap 8 mmol/L (4-12) BUN 8 mg/dL (7-17) Creatinine 0.60 L mg/dL (0.7-1.0) Estim Creat Clear Calc 131 ml/min Estimated GFR > 60 (59 - ) Glucose 80 mg/dL (65-110) Uric Acid 5.6 mg/dL (2.5-7.5) Calcium 9.6 mg/dL (8.4-10.2) Total Bilirubin 0.5 mg/dL (0.2-1.3) AST 29 U/L (14-36) ALT 15 U/L (6-35) Alkaline Phosphatase 110 U/L (38-126) Total Protein 7.0 g/dL (6.3-8.2) Albumin 3.8 g/dL (3.5-5.1) RPR Non-reactive (NonReactive) HIV 1&2 Ab/P24 Ag 4thGn Negative (Negative) Blood Type B Positive Antibody Screen Negative Patient hx anesthesia problems: none Family hx anesthesia problems: none Results Review: All pre-operative results and documents have been reviewed as part of the pre- operative evaluation. [facility] Past Medical History Medical History Anxiety and depression Asthma Fibromyalgia Family History Family History Grandparent Cervical cancer maternal grandmother Carcinoma of colon maternal grandmother Mother Diabetes mellitus Hepatitis C Father Glaucoma Sibling Glaucoma Hypertension Social History Social History Smoking status: Never smoker Second hand tobacco smoke exposure: No Alcohol intake: former Alcohol use details: 3-4 month Substance use: never Substance use type: marijuana Other substance usage details: 1-2 month Last use: 07/2023 Do You Feel Safe in your Home?: Yes Lack of Transportation: No Lack of Food: Never True Current Housing: I Have Housing Concerned About Future Housing: No Difficulty Paying Gas/Electric Bills: No Difficulty Paying for Meds: No Currently Unemployed: No Education: Bachelor's Degree Difficulty w/ Childcare or Family Care: No Living arrangements: other Additional living arrangements comments: engaged 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/Education: occupation 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 Gender identity (if verbalized by the patient): Female Sexual Orientation (if Verbalized by the Patient): Bisexual Spiritual care concerns: No Anes - Eval Final PreProcedure Day of Procedure 07/10/24 12:30 Patient weight: overweight Heart: regular rate and rhythm Lungs: clear to auscultation Airway: Mallampati scale Neurological: alert and oriented ASA classification: III Emergent: no Anesthetic plan: proceed Anesthesia type and monitoring: regional epidural and standard monitoring Results Review: All pre-operative results and documents have been reviewed as part of the pre- operative evaluation. Informed Consent: The patient's anesthetic plan and its attendant risks and benefits were discussed with the patient/family/POA. Questions were solicited and answers provided to the satisfaction of the patient/family/POA.
[2024-07-10 13:19] LABS: Glucose Point of Care 82 mg/dl (65-105)
[2024-07-10 15:41] LABS: Glucose Point of Care 58 mg/dl (65-105)
[2024-07-10 16:26] LABS: Glucose Point of Care 109 mg/dl (65-105)
--- NOTE | 2024-07-10 18:43 | PM.OBPRVD ---
OB - Vaginal Delivery Note Procedure Delivery date: 07/10/24 Events: Diabetes Mellitus Intrapartal Events: Other (Thick meconium) Delivery augmentation: Pitocin Delivery monitor: External FHT and Internal Uterine Route of delivery: Episiotomy description: None Laceration Description: Perineal - 2nd Degree Delivery repair: vicryl (3.0 vicryl) Specimen: Yes (placenta and cord) Quantitative Blood Loss (ml): 300 Anesthesia type: Epidural Disposition: Floor Complications: No immediate complications Narrative: She was admitted with SROM. She then had Pitocin augmentation after rupture of forebag which thick meconium noted. She progressed to active labor. She had epidural placed on request. She delivered a male in direct OP presentation. Peds present at delivery due thick meconium. head was delivered in OP position, nose and mouth suctioned with bulb. The anterior shoulder and the rest of the was delivered with gentle traction. The cord was doubly clamped and cut and infant taken to nursery. She sustained a second degree laceration. Placenta delivered spontaneously and intact. Noted to have a lot of calcifications. Blood sugars were within normal range during labor. She sustained a second degree laceration repaired with 3.0 vicryl. Baby Date of : 07/10/24 Time of : 18:20 Gestational Age by Date: 38 Infant gender: Male presentation: vertex position: Other (direct OP) Placenta delivery description: Spontaneous Cord Vessel Description: 3 Vessels
[2024-07-10] MEDS: OXYTOCIN 30 UNITS/NS 500 ML 30 UNITS/500 ML BAG 125 UNITS IV CONT (18:54)
[2024-07-10] MEDS: WITCH HAZEL 40 PADS 1 PAD TOPICAL (20:26)
[2024-07-10] MEDS: BENZOCAINE 20% AER SPR (*SP) 56 GM CAN 1 SPRAY TOPICAL (20:26)
--- NOTE | 2024-07-10 21:23 | OBPPTRN ---
Patient transferred to post room #288 via wheelchair. Support person present. Oriented to unit, room, information board, rooming in, admission packet and security measures. Patient verbalizes understanding.
[2024-07-11 00:34] VITALS: BP 108/63; PULSE 78; RESP 18; TEMP 37.6; O2SAT 100
[2024-07-11] MEDS: IBUPROFEN 600 MG TABLET PO ×3 (00:45→17:28)
[2024-07-11 03:48] LABS: Hematocrit 33.4 % (37.0-47.0); Hemoglobin 10.9 g/dL (12.0-15.0)
[2024-07-11 07:46] VITALS: BP 91/51; PULSE 72; RESP 16; TEMP 36.6; O2SAT 99
[2024-07-11] MEDS: DOCUSATE SODIUM 100 MG CAPSULE PO ×2 (08:41→17:28)
[2024-07-11] MEDS: MULTIVIT/MIN/PREN/FOL AC/IRON TABLET 1 TAB PO (08:41)
--- NOTE | 2024-07-11 10:30 | PC.NURSE ---
Pt asked if she could go down to the nursery on the first floor to see and feed baby. I told her she could go down anytime she wanted
--- NOTE | 2024-07-11 10:50 | PM.OBPNVD ---
OB - PN: Subj Subjective Date/time seen: 07/11/24 10:50 Interval history: Talked to her while she was in nursery. Patient comments: pain well controlled, tolerating diet and other (Decreasing lochia.) OB - PN: Obj Data Labs 07/11/24 03:21 07/10/24 09:19 Labs: Laboratory Results - last 24 hr 07/10/24 07/10/24 07/10/24 09:19 13:15 15:29 Hgb Hct POC Capillary Glucose 82 58 L* RPR Non-reactive 07/10/24 07/11/24 16:15 03:21 Hgb 10.9 L Hct 33.4 L POC Capillary Glucose 109 H RPR OB - PN A/P Plan day: 1 Plan: routine care Comments: Patient doing well. Routine care. Time Spent With Patient Time: Total time spent is greater than 50% in coordination of care (as documented) at patient's floor/unit and/or counseling patient: Exam Psych: Affect: normal affect
--- NOTE | 2024-07-11 10:54 | PM.OBDSVD ---
DS: Admitting Diagnosis Admitting Diagnosis Spontaneous rupture of membraine DS: Discharge Diagnosis Discharge Diagnosis (1) Vaginal delivery: Code(s): O80 - Encounter for full-term uncomplicated delivery Status: Acute OB - DS: Summary Hospital Course Hospital Course: She was admitted for labor after confirmation of SROM. She had an uncomplicated vaginal delivery. OB Procedures : Ultrasound OB Procedures Intrapartum: Spontaneous Vag Delivery OB Procedures: : None Peripartum Data Laceration Description: Perineal - 2nd Degree Episiotomy description: None Time Spent with Patient Time attestation: Total time spent providing and/or coordinating discharge services: DS: Data Data Completed and Pending Pending studies at discharge: Pending at discharge 07/10/24 18:25 Surgical [PTH] Routine Labs on day of discharge: Labs from last 24 hours 07/11/24 07/10/24 07/10/24 03:21 16:15 15:29 Hgb 10.9 L Hct 33.4 L POC Capillary Glucose 109 H 58 L* RPR 07/10/24 07/10/24 13:15 09:19 Hgb Hct POC Capillary Glucose 82 RPR Non-reactive Discharge Plan Discharge Discharge Medications: No Action buspirone 5 mg tablet 5 mg PO BID albuterol sulfate 90 mcg/actuation aerosol powdr breath activated 1 inh inhalation Q4-6H PRN (Reason: Shortness Of Breath Or Wheezing) hydroxyzine HCl 25 mg tablet 25 mg PO BID PRN (Reason: Anxiety) famotidine [Pepcid] 20 mg tablet 20 mg PO DAILY insulin glargine [Lantus U-100 Insulin] 100 unit/mL Solution 6 unit SUBCUT HS sertraline [Zoloft] 50 mg tablet 50 mg PO DAILY Qty: 60 3RF Rx Instructions: to be started after 7 days of duloxetine 30mg daily triamcinolone acetonide 0.1 % ointment 1 applic topical BID Qty: 80 1RF Date of admission: 07/10/24 08:07 Primary Care Provider: TriShira Admitting Provider: Ana M Porras Attending physician on admission: Ana M Porras
--- NOTE | 2024-07-11 13:02 | WPDANLDPN2 ---
Anes-Prog Note L&D Date/Time: 07/11/24 13:02 Comfortable throughout: labor and delivery Neuraxial method: epidural Epidural/Spinal procedure site: tender Neuro status: Neuro function grossly intact. Cardiovascular status: normal Respiratory status: normal Airway patency: baseline Mental status: baseline Post-Op hydration status: normal Vital Signs: Last Vital Signs Temp 36.6 C 07/11/24 07:46 Pulse 72 07/11/24 07:46 Resp 16 07/11/24 07:46 BP 91/51 L 07/11/24 07:46 Pulse Ox 99 07/11/24 07:46 O2 Del Method Room Air 07/11/24 08:44 Pain score (VAS): 3/10 I/O: Intake & Output 07/10/24 07/11/24 07/11/24 23:59 07:59 15:59 Intake Total 500 Balance 500 Post-procedural complaints: none Patient feedback: Patient satisfied with anesthetic care.
[2024-07-11] MEDS: ACETAMINOPHEN 325 MG TABLET 650 MG PO (13:47)
[2024-07-11 16:50] VITALS: PULSE 93; RESP 16; O2SAT 98
[2024-07-11 17:40] VITALS: BP 105/62; PULSE 93; RESP 16; TEMP 36.4; O2SAT 98
[2024-07-11 20:15] VITALS: BP 111/65; PULSE 88; RESP 16; TEMP 36.8; O2SAT 97
[2024-07-12 07:25] VITALS: BP 105/58; PULSE 78; RESP 18; TEMP 36.3; O2SAT 100
--- NOTE | 2024-07-12 08:26 | PM.OBDSVD ---
DS: Admitting Diagnosis Discharge Date 07/12/24 Admitting Diagnosis intrauterine at term gestational diabetes DS: Discharge Diagnosis Discharge Diagnosis (1) Vaginal delivery: Code(s): O80 - Encounter for full-term uncomplicated delivery Status: Acute OB - DS: Summary Hospital Course Hospital Course: She was admitted for labor after confirmation of SROM. She had an uncomplicated vaginal delivery. OB Procedures : None OB Procedures Intrapartum: Spontaneous Vag Delivery OB Procedures: : None Peripartum Data Laceration Description: Perineal - 2nd Degree Episiotomy description: None Status at Discharge Functional status at discharge: independent ambulation Overall status at discharge: patient is back to baseline Time Spent with Patient Time attestation: Total time spent providing and/or coordinating discharge services: Time spent: Less than 30 minutes Exam Const: General: comfortable and no acute distress Resp: Effort & Inspection: normal respiratory effort Auscultation: clear to auscultation bilaterally Cardio: Rate: regular rate GI: GI Palp: Yes Soft to palpation Auscultation: normal bowel sounds Other: Fundus firm below umbilicus Psych: Appearance: grossly normal Mental Status: mental status grossly normal Affect: normal affect DS: Data Data Completed and Pending Pending studies at discharge: Pending at discharge 07/10/24 18:25 Surgical [PTH] Routine Discharge Plan Discharge Discharging Clinician: Daniel Amos Patient Disposition: Home, Self-Care Activity: as tolerated and pelvic rest Diet: regular Patient Instructions: Antibiotic Form, Perineal Tear with Delivery (DC), Vaginal Delivery (DC) Stand Alone Forms: General Discharge Information Follow-up/Referrals: Ana M Porras MD [Physician] - Discharge Medications: New acetaminophen 500 mg tablet 500 mg PO Q6H PRN (Reason: pain) Qty: 30 0RF ibuprofen 600 mg tablet 600 mg PO Q6H PRN (Reason: pain) Qty: 30 0RF Continued buspirone 5 mg tablet 5 mg PO BID albuterol sulfate 90 mcg/actuation aerosol powdr breath activated 1 inh inhalation Q4-6H PRN (Reason: Shortness Of Breath Or Wheezing) hydroxyzine HCl 25 mg tablet 25 mg PO BID PRN (Reason: Anxiety) famotidine [Pepcid] 20 mg tablet 20 mg PO DAILY sertraline [Zoloft] 50 mg tablet 50 mg PO DAILY Qty: 60 3RF Rx Instructions: to be started after 7 days of duloxetine 30mg daily triamcinolone acetonide 0.1 % ointment 1 applic topical BID Qty: 80 1RF Discontinued insulin glargine [Lantus U-100 Insulin] 100 unit/mL Solution 6 unit SUBCUT HS Date of admission: 07/10/24 08:07 Primary Care Provider: TriShira Admitting Provider: An aM Porras Attending physician on admission: Ana M Porras Condition: Stable
--- NOTE | 2024-07-12 08:40 | PC.NURSE ---
Introductions were made, then consulted with patient to assess needs related to . Mother led the conversation with her?plans to feed?her infant and the?experience so far. Mother plans to supplement with Enfamil formula in addition to her pumped breastmilk. Mother would still like to attempt to put baby to breast for next feeding. She will call this RN for assistance. Educated & reiterated understanding of the benefits of skin to skin, stimulating with massage touch, changing positions to encourage wakefulness, how to watch for early feeding cues, responsive feeding, feeding on demand (aiming for 8-12 times in 24 hours, about every 2-3 hours), milk production, building/maintaining a milk supply, duration of feeding, signs of adequate intake/output and how to record on the feeding sheet. Mother works well with her . Reviewed comfort measures of healing with a warm, wet washcloth to rinse breast, then leave open to air-dry, good handwashing when or touching the breast/nipples to prevent infection. Lanolin nipple cream given to mother. Instructions given on cleaning, care, usage, that there should be no pain, pumping schedule for milk production, collection, and storage of human milk for breast pump usage. Patient was assessed for correct placement, flange size, to pump for comfort and nipple stretching/stimulation for adequate milk production every 3 hours (8 times in 24 hours) 1-2 times at night. Parents are encouraged to record the pumping schedule on the feeding sheet.? Parents voiced understanding of information and will call with the next feeding. Reported to the Primary RN.
[2024-07-12] MEDS: IBUPROFEN 600 MG TABLET PO (09:00)
[2024-07-12] MEDS: INFLUENZA TRIVALENT VACCINE 45 MCG/0.5 ML SYRINGE IM (09:00)
[2024-07-12] MEDS: MULTIVIT/MIN/PREN/FOL AC/IRON TABLET 1 TAB PO (09:00)
--- NOTE | 2024-07-12 09:00 | PC.NURSE ---
Introductions were made, then consulted with patient to assess needs related to . Mother led the conversation with her?plans to feed?her infant and the?experience so far. Mother states that has been on blood sugars and they were supplementing with Enfamil formula and pumping to give infant pumped breast milk for a total of 60cc intake. This is provider ordered. Mother has been unable to get infant to maintain a latch thus far. Upon entering room, mother was feeding infant a bottle of Enfamil. Encouraged understanding of the benefits of skin to skin, stimulating with massage touch, changing positions to encourage wakefulness, how to watch for early feeding cues, responsive feeding, feeding on demand (aiming for 8-12 times in 24 hours, about every 2-3 hours), milk production, building/maintaining a milk supply, duration of feeding, signs of adequate intake/output and how to record on the feeding sheet. Mother works well with her infant. Patient will call this RN for next feeding to attempt to put baby to breast. Physician at bedside during this conversation with mother and states that if she successfully gets infant to latch, that she should give at least 30cc of formula or EBM after feeds. Mother states understanding. Communication board updated with contact information. Reported to the Primary RN.
[2024-07-12] MEDS: DOCUSATE SODIUM 100 MG CAPSULE PO (09:06)
--- NOTE | 2024-07-12 10:39 | PC.NURSE ---
Patient viewed the discharge video Mother & Baby Care, The First Two Weeks . Patient was given the opportunity and encouraged to ask questions. Patient verbalized understanding of information shared and has been given the mother/baby guide for home reference.
--- NOTE | 2024-07-12 11:30 | PC.NURSE ---
Called to patient room to assist with feed. Nipple shield given - infant unable to maintain latch. Mothers nipples are misshapen and flat. Mother requested a nipple shield. latched optimally to the left breast with nipple shield in place in football position. Mother denies pain. Educated mother on the usage and cleaning of nipple shield and her milk supply. Mother understands that pumping is necessary when using a nipple shield until her milk has come in. Once milk has come in, pumping 2-3 times daily is suggested. Mother understands.
[2024-07-13 13:17] VITALS: BP 121/73; PULSE 78; RESP 18; TEMP 36.7; O2SAT 100
== END 2024-07-12 13:20 | disposition home or self-care (01) | DRG 807 ==
LOC: ANHOB2 07-12 09:14 → ANHLDR 07-14 08:24
PROVIDERS: Obstetrics & Gynecology; Admitting Provider Obstetrics & Gynecology; PCP Family Medicine; Visit Provider Student in an Organized Health Care Education/Training Program
DX: O24.429 Gestational diabetes mellitus in childbirth, unspecified control (principal); Z37.0 Single live birth; O99.52 Diseases of the respiratory system complicating childbirth; J45.909 Unspecified asthma, uncomplicated; O77.0 Labor and delivery complicated by meconium in amniotic fluid; O70.1 Second degree perineal laceration during delivery; O99.344 Other mental disorders complicating childbirth; F41.8 Other specified anxiety disorders; Z3A.38 38 weeks gestation of pregnancy; Z23 Encounter for immunization
CPT/HCPCS: 36415; 80053; 82948; 84550; 85014; 85018; 85025; 86592; 86703; 86850; 86900; 86901; 88307; 90471; 90656; A9270; G0008; G0432; J2405; J2590; J2795; J7120

== ENCOUNTER 2024-08-24 18:53 | Emergency (ER) | payer OTHER, SELFPAY ==
--- NOTE | 2024-08-24 19:06 | ED_ITS ---
HPI - General Adult General Chief complaint: Fever Stated complaint: fever,bodyaches Time Seen by Provider: 08/24/24 19:12 Mode of arrival: ambulatory Limitations: no limitations History of Present Illness HPI narrative: 29-year-old female presents with concern for fever, body aches, general malaise. She reports she has mastitis and was prescribed dicloxacillin 6 days ago. Reports she has been taking it but had is not necessarily been taking it as often as it was prescribed. Reports that was prescribed 4 times a day and she is having trouble keeping on that schedule when taking care of his 6 week old. Reports her symptoms have not really improved and she continues to have tenderness not feeling well. She reports she is and pumping with that breast. MD complaint: Fever and body aches Related Data Home Medications Medication Instructions Recorded Confirmed albuterol sulfate 90 mcg/actuation 1 inh inhalation Q4-6H PRN 03/03/23 08/17/24 breath activated powder inhaler Shortness Of Breath Or Wheezing hydroxyzine HCl 25 mg tablet 25 mg PO BID PRN Anxiety 03/03/23 08/17/24 buspirone 10 mg tablet mg PO 08/17/24 08/17/24 cetirizine 10 mg capsule (Zyrtec) 10 mg PO DAILY PRN 08/17/24 08/17/24 vits no.126-ferrous fum tablet PO 08/17/24 08/17/24 28 mg iron-folic acid 800 mcg tablet (Classic ) sertraline 100 mg tablet mg PO 08/17/24 08/17/24 Allergies Allergy/AdvReac Type Severity Reaction Status Date / Time adhesive AdvReac Intermediate Hives Verified 08/17/24 09:25 latex AdvReac Mild Hives Verified 08/17/24 09:25 Review of Systems Review of Systems: CONSTITUTIONAL: Reports malaise, fever. ENT: Denies rhinorrhea, congestion, sinus pain, otalgia or sore throat. CARDIOVASCULAR: Denies chest pain, palpitations, or edema. RESPIRATORY: Denies cough or dyspnea. GASTROINTESTINAL: Denies nausea, vomiting GENITOURINARY: Denies dysuria or hematuria. SKIN: Reports right breast tenderness, redness, swelling, warmth near the axilla MUSCULOSKELETAL: Reports myalgia. NEUROLOGIC: Denies numbness, weakness, or headache. PSYCHIATRIC: Denies anxiety or depression. All systems reviewed & are unremarkable except as noted in HPI and below PMFSH Past Medical History Medical History (Updated 08/24/24 @ 19:17 by Elaine Munguia NP) Anxiety and depression Asthma Fibromyalgia anxiety depression Family History Family History Grandparent Cervical cancer maternal grandmother Carcinoma of colon maternal grandmother Mother Diabetes mellitus Hepatitis C Father Glaucoma Sibling Glaucoma Hypertension Social History Social History Smoking status: Never smoker Second hand tobacco smoke exposure: No Alcohol intake: former Alcohol use details: 3-4 month Substance use: never Substance use type: marijuana Other substance usage details: 1-2 month Last use: 07/2023 Do You Feel Safe in your Home?: Yes Lack of Transportation: No Lack of Food: Never True Current Housing: I Have Housing Concerned About Future Housing: No Difficulty Paying Gas/Electric Bills: No Difficulty Paying for Meds: No Currently Unemployed: No Education: Bachelor's Degree Difficulty w/ Childcare or Family Care: No Living arrangements: other Additional living arrangements comments: engaged Occupation/Education: occupation 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 There is no relevant family history pertinent to the presenting complaint Exam Narrative: GENERAL: Well-appearing, well-nourished, and in no acute distress. HEAD: Normocephalic, atraumatic. EYES: PERRLA, sclera clear ENT: Nares clear. Mucous membranes moist. NECK: Supple. CHEST: No respiratory distress. Speaks in full sentences. HEART: Regular rate and rhythm. EXTREMITIES: Normal range of motion. No edema. Normal strength and sensation. SKIN: Warm, dry, no visible rash. NEURO: Alert and oriented x3. PSYCH: Normal mood and affect Chest: Chest/axillae images: 1. Erythema, edema, induration, tenderness, warmth Course Course Emergency Course: Will add coverage for [facility] and advised patient to call her roll up guider operator in the morning for re-evaluation. Patient was given reasons to the emergency room for symptoms worsen or do not improve Patient is aware of diagnosis, understands and agrees to treatment plan. Anticipatory guidance given. Patient agrees to follow-up as directed and is a brown of reasons to seek care at the emergency department. Portions of this record may have been created with voice recognition software Level of Care: Express Care Visit Vital Signs Vital signs: Reviewed. Medical Decision Making MDM Narrative Medical decision making narrative: The patient was evaluated by myself in the emergency department. History is obtained from patient who is an independent historian and physical exam was performed.? Available medical records were reviewed at this time. ? Exam findings show no acute concerns or changes; patient is non-toxic appearing and is in no distress. Patient is appropriate for outpatient treatment and follow-up. ? I have evaluated and discussed social determinants of health with the patient that could potentially impact subsequent diagnosis and treatment plans. ? Differential diagnosis and treatment plan were discussed with the patient. Patient agrees with discussion and after shared medical decision making agrees with plan of care. All questions were answered to the patient's satisfaction. Critical Care Time Critical Care Time Critical Care Time: No Discharge Plan Discharge Clinical Impression: Mastitis Patient Disposition: Home, Self-Care Condition: Stable Instructions: Antibiotic Form, Mastitis (ED) Additional Instructions: Please follow up with your roll up guider operator, call tomorrow for an appointment. Rest and elevate affected area; apply moist heat 3-4 times daily for 10-15 minutes. Take Tylenol for pain. Please take Antibiotics as directed, add clindamycin and talk to your roll up guider operator about continuing dicloxacillin tomorrow. In the meantime continue dicloxacillin as directed. If you experience any worsening redness, swelling, streaking (red lines), fever or chills please go to the ER Prescriptions: New clindamycin HCl 300 mg capsule 300 mg PO Q8H 7 Days Qty: 21 0RF No Action buspirone 10 mg tablet PO sertraline 100 mg tablet PO Classic 28 mg iron- 800 mcg tablet PO Zyrtec 10 mg capsule 10 mg PO DAILY PRN dicloxacillin 500 mg capsule 500 mg PO Q6H 10 Days Qty: 40 0RF albuterol sulfate 90 mcg/actuation aerosol powdr breath activated 1 inh inhalation Q4-6H PRN (Reason: Shortness Of Breath Or Wheezing) hydroxyzine HCl 25 mg tablet 25 mg PO BID PRN (Reason: Anxiety) acetaminophen 500 mg tablet 500 mg PO Q6H PRN (Reason: pain) Qty: 30 0RF ibuprofen 600 mg tablet 600 mg PO Q6H PRN (Reason: pain) Qty: 30 0RF Follow-up/Referrals: Ana M Porras MD [Primary Care Provider] - Time of Disposition: 19:19
[2024-08-24 19:07] VITALS: BP 127/83; PULSE 117; RESP 16; TEMP 37.4; O2SAT 100
== END 2024-08-24 19:21 | disposition home or self-care (01) ==
PROVIDERS: Emergency Provider Nurse Practitioner; PCP Obstetrics & Gynecology
DX: N61.0 Mastitis without abscess (principal); J45.909 Unspecified asthma, uncomplicated; M79.7 Fibromyalgia; F41.9 Anxiety disorder, unspecified; F32.A Depression, unspecified
CPT/HCPCS: 99213; G0463

== ENCOUNTER 2024-10-31 17:29 | Emergency (ER) | payer OTHER, SELFPAY ==
[2024-10-31 17:39] VITALS: BP 117/77; PULSE 114; RESP 16; TEMP 37.4; O2SAT 98
--- NOTE | 2024-10-31 17:42 | ED_ITS ---
HPI - URI/Sore Throat General Chief Complaint: Upper Respiratory Infection Stated Complaint: Bodyaches/headeache/chills Time Seen by Provider: 10/31/24 17:36 Source: patient and RN notes reviewed Mode of arrival: ambulatory Limitations: no limitations History of Present Illness HPI Narrative: Patient presents today complaining of fever up to 100.6, headache, cough, scratchy throat since last night. Reports some body aches today. Throat has resolved. She has tried some Tylenol cold and flu without relief. Related Data Home Medications ?Medication ?Instructions ?Recorded ?Confirmed ?Last Taken ?Type albuterol sulfate 90 mcg/actuation 1 inh inhalation Q4-6H PRN 03/03/23 08/17/24 Unknown History breath activated powder inhaler Shortness Of Breath Or Wheezing hydroxyzine HCl 25 mg tablet 25 mg PO BID PRN Anxiety 03/03/23 08/17/24 Unknown History buspirone 10 mg tablet mg PO 08/17/24 08/17/24 Unknown History cetirizine 10 mg capsule (Zyrtec) 10 mg PO DAILY PRN 08/17/24 08/17/24 Unknown History vits no.126-ferrous fum tablet PO 08/17/24 08/17/24 Unknown History 28 mg iron-folic acid 800 mcg tablet (Classic ) sertraline 100 mg tablet mg PO 08/17/24 08/17/24 Unknown History Allergies Allergy/AdvReac Type Severity Reaction Status Date / Time adhesive AdvReac Intermediate Hives Verified 10/31/24 17:36 latex AdvReac Mild Hives Verified 10/31/24 17:36 Review of Systems Review of Systems: CONSTITUTIONAL: + fever, body aches EYES: Denies visual changes, redness, or discharge. ENT: Denies rhinorrhea, congestion, sore throat, or otalgia. CARDIOVASCULAR: Denies chest pain, palpitations, or edema. RESPIRATORY: Denies dyspnea.+ cough GASTROINTESTINAL: Denies abdominal pain, nausea, vomiting, or diarrhea. GENITOURINARY: Denies dysuria or hematuria. SKIN: Denies rash, itching, or wounds. MUSCULOSKELETAL: Denies back pain, joint pain, or myalgia. NEUROLOGIC: Denies headache, numbness, tingling, or weakness. PSYCH: Denies depression or anxiety. [facility] Past Medical History Medical History anxiety depression Anxiety and depression Asthma Fibromyalgia Family History Family History Grandparent Cervical cancer maternal grandmother Carcinoma of colon maternal grandmother Mother Diabetes mellitus Hepatitis C Father Glaucoma Sibling Glaucoma Hypertension Social History Social History Smoking status: Never smoker Second hand tobacco smoke exposure: No Alcohol intake: former Alcohol use details: 3-4 month Substance use: never Substance use type: marijuana Other substance usage details: 1-2 month Last use: 07/2023 Do You Feel Safe in your Home?: Yes Lack of Transportation: No Lack of Food: Never True Current Housing: I Have Housing Concerned About Future Housing: No Difficulty Paying Gas/Electric Bills: No Difficulty Paying for Meds: No Currently Unemployed: No Education: Bachelor's Degree Difficulty w/ Childcare or Family Care: No Living arrangements: other Additional living arrangements comments: engaged Occupation/Education: occupation 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 Please see nursing chart for further information. There is no relevant family history pertinent to the presenting complaint Exam Narrative: GENERAL: Well-appearing, well-nourished, and in no acute distress. HEAD: Normocephalic, atraumatic. EYES: EOMI. No redness or drainage. Conjunctivae normal. ENT: Mucous membranes pink and moist. Nares clear. No rhinorrhea. TMs normal bilaterally. Throat normal. Uvula midline. NECK: Normal AROM. Supple. No lymphadenopathy. CHEST: No respiratory distress. Clear to auscultation. HEART: Regular rate and rhythm. No murmur appreciated. EXTREMITIES: Normal range of motion. No edema. SKIN: Warm, dry, no rash. Capillary refill normal. Normal skin turgor. NEURO: No focal deficits. Alert and oriented x3. Gait steady. PSYCH: Normal affect. No signs of depression or anxiety. Course Course Level of Care: Express Care Visit Vital Signs Vital signs: Vital Signs Temperature 99.4 F 10/31/24 17:39 Pulse Rate 114 H 10/31/24 17:39 Respiratory Rate 16 10/31/24 17:39 Blood Pressure 117/77 10/31/24 17:39 Pulse Oximetry 98 10/31/24 17:39 Temperature 99.4 F 10/31/24 17:39 Pulse Rate 114 H 10/31/24 17:39 Respiratory Rate 16 10/31/24 17:39 Blood Pressure 117/77 10/31/24 17:39 Pulse Oximetry 98 10/31/24 17:39 Review MDM - URI/Sore Throat MDM Narrative Medical decision making narrative: Influenza and COVID-19 negative. Symptoms likely viral in etiology. Discussed [id number] medication use and duration of illness. No prescription medications indicated at this time. Anticipatory guidance given. Differential Diagnosis Differential diagnosis: Likely upper respiratory infection, viral infection, influenza, pharyngitis and other (COVID) Lab Data Attestation: I reviewed the patient's lab results. Labs: Lab Results 10/31/24 Range/Units 17:54 POC Influenza A Ag Negative (Negative) POC Influenza B Ag Negative (Negative) POC SARS CoV-2 Ag Negative (Negative) Critical Care Time Critical Care Time Critical Care Time: No Discharge Plan Discharge Clinical Impression: Upper respiratory infection Qualifiers: URI type: unspecified URI Qualified Code(s): J06.9 - Acute upper respiratory infection, unspecified Patient Disposition: Home, Self-Care Condition: Stable Instructions: Upper Respiratory Infection (DC) Additional Instructions: Your COVID-19 and influenza swabs are negative today. Your Symptoms are likely due to a viral illness, which is not treated with antibiotics. Virus symptoms can last for up to 7-10days. Take Tylenol or ibuprofen for pain or fever. Rest and stay hydrated. Follow up with your PCP in 7 days if symptoms are not improving. Go to the ER immediately if you develop shortness of breath, difficulty swallowing, or any other concerning symptoms. Patient Language: Bahamian Prescriptions: No Action buspirone 10 mg tablet PO sertraline 100 mg tablet PO Classic 28 mg iron- 800 mcg tablet PO Zyrtec 10 mg capsule 10 mg PO DAILY PRN albuterol sulfate 90 mcg/actuation aerosol powdr breath activated 1 inh inhalation Q4-6H PRN (Reason: Shortness Of Breath Or Wheezing) hydroxyzine HCl 25 mg tablet 25 mg PO BID PRN (Reason: Anxiety) acetaminophen 500 mg tablet 500 mg PO Q6H PRN (Reason: pain) Qty: 30 0RF ibuprofen 600 mg tablet 600 mg PO Q6H PRN (Reason: pain) Qty: 30 0RF Follow-up/Referrals: PHYSICIAN,BALLISTIC TECHNICIAN [Primary Care Provider] - Time of Disposition: 18:00
[2024-10-31 17:57] LABS: EDCOVIDSCREEN Negative (Negative); EDINFLUASCREEN Negative (Negative); EDINFLUBSCREEN Negative (Negative)
== END 2024-10-31 18:03 | disposition home or self-care (01) ==
PROVIDERS: Emergency Provider Nurse Practitioner
DX: J06.9 Acute upper respiratory infection, unspecified (principal); Z20.822 Contact with and (suspected) exposure to COVID-19; J45.909 Unspecified asthma, uncomplicated; M79.7 Fibromyalgia; F41.9 Anxiety disorder, unspecified; F32.A Depression, unspecified
CPT/HCPCS: 87426; 87804; 99212; G0463

== ENCOUNTER 2024-12-07 09:23 | Outpatient (CLI) | payer OTHER, SELFPAY ==
--- NOTE | ~2024-12-07 | US_ITS ---
EXAMINATION TYPE: US breast RT limited COMPARISON: NONE REASON FOR STUDY: breast feeding lump TECHNIQUE: Targeted sonographic evaluation of the right breast was performed. INTERPRETATION: At the 7:00-o'clock position right breast, 4 cm from the nipple, there is a 2.1 x 1.5 x 1.8 cm cystic mass with a single somewhat prominent septation. There is posterior through transmission. Lesion is well-circumscribed. IMPRESSION: 2.1 x 1.5 x 1.8 cm mildly complex cystic mass at the area of concern in the right breast. This is mos t likely benign. Six-month follow-up ultrasound recommended to reassess. BI-RADS CATEGORY: BI-RADS 3: Probably benign Reviewed, dictated and finalized at [facility]. GER RETAIL IMPRESSION: 2.1 x 1.5 x 1.8 cm mildly complex cystic mass at the area of concern in the rig ht breast. This is most likely benign. Six-month follow-up ultrasound recommend ed to reassess. BI-RADS CATEGORY: BI-RADS 3: Probably benign
== END 2024-12-07 09:24 | disposition home or self-care (01) ==
LOC: MICIMG 09:24
PROVIDERS: PCP Obstetrics & Gynecology; Visit Provider Obstetrics & Gynecology
DX: N63.13 Unspecified lump in the right breast, lower outer quadrant (principal); R92.8 Other abnormal and inconclusive findings on diagnostic imaging of breast
CPT/HCPCS: 76642

== ENCOUNTER 2025-02-14 09:59 | Outpatient (CLI) | payer OTHER, SELFPAY ==
[2025-02-14 10:27] LABS: Glucose Fasting 88 mg/dL
--- OUTSIDE RECORDS SUMMARY | 2025-02-14 10:50 | XMS_ITS | Encounter Summary ---
Author Organization [facility] Facility Care Team Providers Care Sheet Metal Engineer Name Role Phone Shira Bartlett MD Primary Care Provi idalmis Carmen Walters NP Primary Care Provider [phone] Carmen Walters LABORATORY ANIMAL FACILITY SUPERVISOR Primary Care Provider [phone] Shira Bartlett MD Primary Care Provi idalmis Encounter Details Date Type Department Care Team (Latest Contact Info) Description 11/25/2017 Orders Only [facility] CLINCONV ProviderGómez MD [address] [place] [id number] Social History Tobacco Use Types Packs/Day Years Used Date Smoking Tobacco: Never Comments Unknown Sex and Gender Information Value Date Recorded Sex Assigned at Not on file Legal Sex Female 7:39 AM MAINTENANCE SUPERVISOR ELECTRICAL Gender Identity Female 10/01/2024 9:41 AM MAINTENANCE SUPERVISOR ELECTRICAL Sexual Orientation Not on file documented as of this encounter Plan of Treatment Not on file documented as of this encounter Procedures Procedure Name Priority Date/Time Associated Diagnosis Comments CARDIOLOGY REPORT 12/02/2017 12: 00 AM MAINTENANCE SUPERVISOR ELECTRICAL documented in this encounter Results * CARDIOLOGY REPORT (12/02/2017 12:00 AM MAINTENANCE SUPERVISOR ELECTRICAL) Anatomical Region Laterality Modality Other Narrative 12/02/2017 12:00 AM MAINTENANCE SUPERVISOR ELECTRICAL Ordered by an unspecified provider. us Historical Provider [facility] GERONIMO SELF Final Result documented in this encounter Visit Diagnoses Not on filedocumented in this encounter Additional Health Concerns Infection Onset Date Last Indicated Resolved Time COVID: Suspected 02/05/2022 02/05/2022 02/05/2022 9:03 PM CDT COVID: Suspected 11/19/2024 11/19/2024 11/19/2024 10:16 AM MAINTENANCE SUPERVISOR ELECTRICAL documented as of this encounter Care Teams Sheet Metal Engineer Relationship Specialty Start Date End Date Shira Bartlett MD [address] [place] [address] PCP - General 08/11/17 01/14/19 Carmen Walters NP [address] [place] [address] PCP - General 03/26/19 03/13/21 Carmen Walters NP [address] [place] [address] PCP - General 01/15/19 03/25/19 Shira Bartlett MD [address] [place] [address] PCP - General Family Medicine 03/14/21 documented as of this encounter
--- OUTSIDE RECORDS SUMMARY | 2025-02-14 10:51 | XMS_ITS | Clinical Summary ---
Author Organization [facility] Address [address] [place] [address] Care Team Providers Care Correction Officer Reformatory Name Role Phone Unavailable Primary Care Provider Unavailabl e Source Comments [facility],non-owned Affiliates and Associated Physician Practices is amultiple site organization consisting of ambulatory clinics and hospital sitesin [place], [place]. This disclosure is being madepursuant to the Care Everywhere program and may not contain all information available regarding this patient. Last updated 18.[facility] Allergies No known active allergies Medications * Be aware that medications may not be up to date on this document. Alwaysverify current medications with the patient. Vit-DSS-Fe Fum-FA ( vitamin with iron) tablet Take 1 (one) tablet by mouth once daily Active sertraline (Zoloft) 25 MG tablet Take 2 (two) tablets by mouth at bedtime Active busPIRone (Buspar) 5 MG tablet Take 1 (one) tablet by mouth 3 times daily Active cetirizine (ZyrTEC) 10 MG tablet Take 1 (one) tablet by mouth at bedtime Active famotidine (Pepcid) 20 MG tablet Take 1 (one) tablet by mouth once daily Active magnesium oxide (Mag-Ox) 400 MG tablet Take 1 (one) tablet by mouth once daily Active albuterol HFA (Proventil; Ventolin; Proair) 108 (90 Base) MCG/ACT inhaler Inhale 2 (two) puffs by mouth every 6 hours as needed Active hydrOXYzine HCl (Atarax) 25 MG tablet Take 1 (one) tablet by mouth 4 times daily as needed for Itching Active insulin glargine (Lantus/Semglee ) 100 units/mL pen Inject 6 units at bedtime. Take dosages approximately same time each evening. Increase dose as directed due to increasing insulin requirements during . Max total daily dose = 50u 15 mL 2 4 Active insulin pen needle (Novofine) 32G X 6 MM MISCIndications :Insulin controlled gestational diabetes mellitus (GDM) in third trimester (HCC) 1 (one) Each by Injection route as directed 100 Each 2 4 Active Alcohol Swabs Use 1 Swab as needed 100 Each 2 4 Active Glucagon (Baqsimi One Pack) 3 MG/DOSE POWD Nixon 1 Each into the nose as needed 1 Each 4 Active Active Problems Problem Noted Date Diagnosed Date Gestational diabetes mellitu s (GDM) affecting first 06/23/2024 Encounter for screening 06/23/2024 Family History Medical History Relation Name Comments High Cholesterol Brother Anxiety Disorder Father Depression Father Diabetes - Type 2 Father Glaucoma Father Hypertension Father Cancer - Cervical Maternal Grandfather Anxiety Disorder Mother Depression Mother Hypertension Mother Relation Name Status Comments Brother Father Maternal Grandfather Mother Social History Tobacco Use Types Packs/Day Years Used Date Smoking Tobacco: Never Smokeless Tobacco: Never Tobacco Cessation:Counseling Given: Not Answered Alcohol Use Standard Drinks/Week Comments Not Currently 0 (1 standard drink = 0.6 oz pur e alcohol) Comments No Sex and Gender Information Value Date Recorded Sex Assigned at Not on file Legal Sex Female 10:36 AM CDT Gender Identity Not on file Sexual Orientation Not on file Last Filed Vital Signs Vital Sign Reading Time Taken Comments Blood Pressure 107/73 07/09/2024 9:32 AM CDT Pulse 89 07/09/2024 9:32 AM CDT Temperature - - Respiratory Rate - - Oxygen Saturation - - Inhaled Oxygen Concentration - - Weight 88.5 kg (195 lb 3.2 oz) 06/23/2024 9:34 A M CDT Height 167.6 cm (5' 6 ) 05/19/2024 2:28 PM CDT Body Mass Index 31.51 05/19/2024 2:28 PM CDT Plan of Treatment Health Maintenance Due Date Last Done Comments PAP SMEAR 1995 HIV SCREENING 2010 HEPATITIS C SCREENING 01/13/2013 DTAP/TDAP/TD VACCINES (1 - Tdap) 2014 HEPATITIS B VACCINE (1 of 3 - 19+ 3-dose series) 2014 COVID-19 VACCINE (5 - season) 2024 01/25/2022, 01/21/2022, 01/25/2021, Additional history exists DEPRESSION SCREENING 10/13/2024 INFLUENZA VACCINE (Season Ended) 2025 08/14/2023, 07/13/2022, 01/21/2022, Additional history exists ZOSTER VACCINE (1 of 2) 2045 HIB VACCINE Aged Out No longer eligi ble based on patient's age to complete this topic HPV VACCINE Aged Out No longer eligi ble based on patient's age to complete this topic MENINGOCOCCAL (Group B) VACCINE SHARED DECISION-MAKING Aged Out No longer eligible based on patient's age to complete this topic MENINGOCOCCAL GROUPS A/C/Y/W VACCINE Aged Out No longer eligible based on patient's age to complete this topic PNEUMOCOCCAL VACCINE Aged Out No long er eligible based on patient's age to complete this topic Insurance [facility]
--- OUTSIDE RECORDS SUMMARY | 2025-02-14 10:51 | XMS_ITS | Encounter Summary ---
Author Organization [facility] Facility Care Team Providers Care Lineworker Name Role Phone Shira Bartlett MD Primary Care Provi idalmis Shira Bartlett MD Primary Care Provi idalmis Carmen Walters NP Primary Care Provider [phone] Carmen Walters HEAT TREATER HELPER Primary Care Provider [phone] Shira Bartlett MD Primary Care Provi idalmis Encounter Details Date Type Department Care Team (Latest Contact Info) Description 04/15/2017 Orders Only [facility] CLINCONV ProviderGómez MD [address] [place] [id number] Social History Tobacco Use Types Packs/Day Years Used Date Smoking Tobacco: Never Assessed Comments Unknown Sex and Gender Information Value Date Recorded Sex Assigned at Not on file Legal Sex Female 7:39 AM CLOTH FINISHING RANGE OPERATOR Gender Identity Female 10/01/2024 9:41 AM CLOTH FINISHING RANGE OPERATOR Sexual Orientation Not on file documented as of this encounter Plan of Treatment Not on file documented as of this encounter Procedures Procedure Name Priority Date/Time Associated Diagnosis Comments SCAN - LABS 04/15/2017 12:00 AM CDT documented in this encounter Results * SCAN - LABS (04/15/2017 12:00 AM CDT) Narrative 04/15/2017 12:00 AM CDT Ordered by an unspecified provider. us Historical Provider Final Res ult documented in this encounter Visit Diagnoses Not on filedocumented in this encounter Additional Health Concerns Infection Onset Date Last Indicated Resolved Time COVID: Suspected 02/05/2022 02/05/2022 02/05/2022 9:03 PM CDT COVID: Suspected 11/19/2024 11/19/2024 11/19/2024 10:16 AM CLOTH FINISHING RANGE OPERATOR documented as of this encounter Care Teams Lineworker Relationship Specialty Start Date End Date Shira Bartlett MD [address] [place] [address] PCP - General 06/11/17 08/10/17 Shira Bartlett MD [address] [place] [address] PCP - General 08/11/17 01/14/19 Carmen Walters HEAT TREATER HELPER [address] [place] [address] PCP - General 03/26/19 03/13/21 Carmen Walters HEAT TREATER HELPER [address] [place] [address] PCP - General 01/15/19 03/25/19 Shira Bartlett MD [address] [place] [address] PCP - General Family Medicine 03/14/21 documented as of this encounter
--- OUTSIDE RECORDS SUMMARY | 2025-02-14 10:51 | XMS_ITS | Referral Summary ---
Author Organization [facility] at the Medical Office Building Address [address] [place] [phone] Care Team Providers Care Slate Roofer Helper Name Role Phone Shira Bartlett MD Primary Care Provi idalmis Encounters Date Type Department Care Team Description 12/01/2024 Orders Only [facility] Medical [facility] Family Medicine [address] [place] [phone] Rupal Zhong PA 11/19/2024 10:00 AM ENTERPRISE ACCOUNT EXECUTIVE Office Visit [facility] Family Medicine [address] [place] [phone] Rupal Zhong PA Mild intermittent asthma with exacerbation (Primary Dx); Viral upper respiratory tract infection; Acute conjunctivitis of both eyes, unspecified acute conjunctivitis type; Cough, unspecified type; BMI 26.0-26.9,adult 11/19/2024 Nurse Triage [facility] Medical Group Patient Access [address] [facility] [address] [place] [phone] Stacy Carvajal RN from Last 3 Months Allergies Active Allergy Reactions Criticality Noted Date Comments Latex Unknown 01/11/2019 Medications cetirizine (ZyrTEC) 10 mg tablet Take 1 tablet (10 mg total) by mouth daily Active Estarylla 0.25-35 mg-mcg per tablet TAKE 1 TABLET BY MOUTH DAILY 84 tablet 3 2 Active Additional Information Patient not taking.Reported on 11/19/2024 ibuprofen (ADVIL,MOTRIN) 600 mg tabletIndicatio ns:Fibromyalgia Take 1 tablet (600 mg total) by mouth every 8 (eight) hours as needed for pain (pain) 30 tablet 1 3 Active hydrOXYzine (ATARAX) 25 mg tabletIndicatio ns:Panic attacks Take 1 tablet (25 mg total) by mouth 2 (two) times a day as needed for anxiety 30 tablet 1 3 Active busPIRone (BUSPAR) 5 mg tabletIndicatio ns:RENÉE (generalized anxiety disorder) TAKE 1 TABLET(5 MG) BY MOUTH TWICE DAILY 180 tablet 2 3 Active Additional Information Patient taking differently: 15 mgoral 2 times daily, Reported on 11/19/2024 fluticasone propionate (FLONASE) 50 mcg/actuation nasal sprayIndication s:Dysfunction of both eustachian tubes Administer 1 spray into each nostril daily 1 each 3 3 Active albuterol HFA (ProAir HFA) 90 mcg/actuation inhaler Inhale 2 puffs every 4 (four) hours as needed for wheezing or shortness of breath 8.5 g 5 4 Active sertraline (ZOLOFT) 100 mg tablet Take 1.5 tablets (150 mg total) by mouth daily 4 Active desvenlafaxine ER (PRISTIQ) 25 mg tablet extended release 24 hr 24 hr tablet Take 1 tablet (25 mg total) by mouth daily 5 Active Active Problems Problem Noted Date Diagnosed Date () 10/21/2024 Assessment & Plan (11/03/2024 10:05 AM ENTERPRISE ACCOUNT EXECUTIVE): Check meds for safety prior to taking. Imodium and antihistamines are not recommended. Continue Tylenol and ibuprofen as needed Assessment & Plan (10/21/2024 8:34 AM ENTERPRISE ACCOUNT EXECUTIVE): Currently . She states that specialist is aware of her using buspirone and this is okay. Palpitations 08/14/2023 Moderate episode of recurrent major depressive d isorder 10/31/2021 Assessment & Plan (10/21/2024 8:31 AM ENTERPRISE ACCOUNT EXECUTIVE): Chronic. Improving. Continue to follow with specialist, managing sertraline. Continue BuSpar. Assessment & Plan (01/09/2023 8:07 AM CDT): Chronic, persistent Continue cymbalta Will add buspar Continue healthy changes for her mood Update me with any changes Call for questions Assessment & Plan (02/05/2022 8:57 AM CDT): Improved Will increase her cymbalta Continue healthy changes for her mood Update me with any changes Any dangerous thoughts to the er Call for questions Assessment & Plan (10/31/2021 10:48 AM ENTERPRISE ACCOUNT EXECUTIVE): Patient reiterated no suicidal thoughts at this time; contact 911 and go to the ER if becomes suicidal cymbalta 30 mg daily take medication as directed discussed side effects of medication with patient encouraged healthy diet and exercise encouraged patient to see a counselor use support structures you have in place consider meditation-look at Calm katarzyna try to work on healthy sleep habits If mood worsens or changes, please contact the office Anything emergent, to the er RENÉE (generalized anxiety disorder) 10/31/2021 Assessment & Plan (10/21/2024 8:31 AM ENTERPRISE ACCOUNT EXECUTIVE): Chronic. Improving. Continue to follow with specialist. Continue sertraline and buspirone. Assessment & Plan (08/14/2023 8:58 AM CDT): Controlled on current medication, continue Assessment & Plan (01/09/2023 8:07 AM CDT): Chronic, worse Will add atarax as needed for panic attacks Continue cymbalta Add buspar twice daily to improve anxiety overall Look at therapy Continue healthy changes for her mood Call for questions Assessment & Plan (02/05/2022 8:57 AM CDT): Improved Will increase her cymbalta Continue healthy changes for her mood Update me with any changes Call for questions Assessment & Plan (10/31/2021 10:48 AM ENTERPRISE ACCOUNT EXECUTIVE): Will start with cymbalta Work on healthy changes for her mood Update me if anything changes or worsen Call for questions or concerns COVID-19 virus infection 09/10/2021 Assessment & Plan (09/10/2021 2:08 PM ENTERPRISE ACCOUNT EXECUTIVE): Acute-advised to finish Medrol Dosepak. Recommended Mucinex as directed as needed for the next 5-7 days. Instructed to increase clear liquids, rest, and vitamin C in diet. Advised to sleep with head elevated and use a cool mist vaporizer and Vicks VapoRub at bedtime for cough and congestion. Recommended self-isolating for at least 10 days from the onset of symptoms, AND until fever-free for at least 24 hours without medication, AND until all symptoms have improved. Advised to follow-up with PCP if symptoms don't improve, ER for worsening or new symptoms. Fibromyalgia 02/02/2019 Assessment & Plan (10/21/2024 8:31 AM ENTERPRISE ACCOUNT EXECUTIVE): Chronic. Stable. She is no longer on Cymbalta and doing okay. Change to sertraline to help with depression. Continue ibuprofen or naproxen as needed, uses rarely. Assessment & Plan (08/14/2023 8:28 AM CDT): Stable on current medication Continue follow-up in 6 months Assessment & Plan (01/09/2023 8:06 AM CDT): Chronic, worse Will continue cymbalta Will add motrin to use for a flares Use support structures Start low activity 10 minutes twice a week to avoid post exercise malaise Consider yoga and toby chi Stretch, work on good sleep Count your spoons! Consider PT Update me in 6 weeks Assessment & Plan (02/05/2022 8:56 AM CDT): With flares Will increase cymbalta to 60 mg daily Continue supportive care-rest, stretych, heat as needed Call if symptoms worsen or change Assessment & Plan (02/02/2019 1:08 PM CDT): We discussed medication options- she has tried many and failed Continue supportive care Consider PT Consider further evaluation Call for questions or concerns Vaginal spotting 05/12/2018 Assessment & Plan (02/02/2019 11:33 AM CDT): Will refer to sourcing coordinator for further guidance Update me after the visit Allergic rhinitis 04/30/2018 Assessment & Plan (10/21/2024 8:30 AM ENTERPRISE ACCOUNT EXECUTIVE): Chronic. No recent flare-ups. Continue Zyrtec and Flonase as needed Assessment & Plan (10/31/2021 10:49 AM ENTERPRISE ACCOUNT EXECUTIVE): Continue zyrtec Well adult exam 08/11/2017 Overview (10/21/2024): Encouraged a healthy diet, and regular physical activity to her level Wear sun screen, seat belts No texting/drinking and driving Health Maintenance: Last PAP: 02/2023, sourcing coordinator Last Tdap: 05/2017 Last Flu: up to date Last COVID: encouraged Last RSV: up to date Assessment & Plan (10/21/2024 8:34 AM ENTERPRISE ACCOUNT EXECUTIVE): Health Maintenance: 10/21/24 Last PAP: 02/2023, sourcing coordinator Last Tdap: 05/2017 Last Flu: up to date Last COVID: encouraged Last RSV: up to date Labs during done through [employer]. Will complete employer form when needed. Assessment & Plan (10/31/2021 10:47 AM ENTERPRISE ACCOUNT EXECUTIVE): Encouraged a healthy diet, and regular physical activity to her level Wear sun screen, seat belts No texting/drinking and driving Health Maintenance: Last PAP: will refer to ENGINEERING PSYCHOLOGIST Last Tdap: check immunization record Last Flu:encouraged Last COVID: due for booster Fibromyalgia affecting multiple sites 12/26/2016 Insomnia 09/17/2016 Temporomandibular joint disorder 05/28/2016 Exercise-induced asthma 05/02/2016 Assessment & Plan (10/21/2024 8:30 AM ENTERPRISE ACCOUNT EXECUTIVE): Chronic. No recent flare-ups. Continue albuterol inhaler as needed. Assessment & Plan (02/05/2022 8:55 AM CDT): With possible exacerbation- will start a medrol dose pack Reviewed the risks/beneits She can use her inhaler every 4-6 hours to help Update me in 48 hours Call for questions Assessment & Plan (10/31/2021 10:50 AM ENTERPRISE ACCOUNT EXECUTIVE): Albuterol refilled Continue to monitor her symptoms Encouraged flu vaccine Call for questions or concerns Frequent headaches 05/02/2016 Assessment & Plan (10/21/2024 8:31 AM ENTERPRISE ACCOUNT EXECUTIVE): Chronic. Improved. Monitor Hx of ovarian cyst 05/02/2016 Assessment & Plan (02/02/2019 11:33 AM CDT): Ultrasound reviewed Will refer to ENGINEERING PSYCHOLOGIST- [facility] Update me after the visit Call for questions or concerns Panic attacks 05/02/2016 Assessment & Plan (10/21/2024 8:32 AM ENTERPRISE ACCOUNT EXECUTIVE): Chronic. Occurring occasionally. Usually recovers without medication. Monitor Advised not to take hydroxyzine while . Assessment & Plan (01/09/2023 8:08 AM CDT): Worse Will add hydroxyzine to use for panic attacks Resolved Problems Problem Noted Date Diagnosed Date Resolved Date Acute URI 03/15/2021 10/20/2024 Assessment & Plan (02/05/2022 8:55 AM CDT): Discussed viral nature of illness, treat symptomatically Tylenol/ibuprofen as needed, and can use medicine like mucinex or robitussin to help with the cough Increase fluids, rest and handwashing Warm saltwater gargles Consider a hot drink with honey Saline rinses to nose at least twice daily Cool mist humidifier May use Sproom vaporub on chest and feet as needed to help with cough Please call if symptoms change or worsen, to the ER for anything emergent Will check labs for flu, covid, and strep Assessment & Plan (03/15/2021 11:22 AM CDT): Discussed viral nature of illness, treat symptomatically Tylenol/ibuprofen as needed, and can use medicine like mucinex or robitussin to help with the cough Will start predisone burst Increase fluids, rest and handwashing Warm saltwater gargles Consider a hot drink with honey Cool mist humidifier May use vicks vaporub on chest and feet as needed to help with cough Please call if symptoms change or worsen, to the ER for anything emergent Alternating constipation and diarrhea 05/02/2016 10/31/2021 Depression with anxiety 05/02/201610/13 Seasonal allergies 05/02/2016 Muscle pain 10/18/2010 10/31/2021 Encounter for preventive health examination 09/13/2010 10/31/2021 Immunizations Immunization Administration Dates Next Due DTaP 5 Pertussis 01/23/1999, 6,1995,05/21,1995 HPV, Unspecified 07/14/2009,01/05/2009, 9 Hep A, Unspecified 10/18/2008,05/13/2006 Hep B, Unspecified 1995,1995, 995 HiB 04/20/1996, 5,1995,03/26 IPV 01/23/1999, 5,1995,03/26 Influenza, Quadrivalent, Spl it, Preservative Free, Intramuscular 08/14/2023,01/21/2022,12/31/2019 Influenza, Trivalent, Preser vative Free, Intramuscular 07/12/2024 Influenza, Unspecified 07/11/2024,2021,07/13/2021,01/18,08/13/2010,10/18/2008 MMR 01/23/1999,04/20/1996 Meningococcal ACWY, Unspecified 10/18/2008 PPD TEST 10/26/2024,01/21/2022 Pfizer SARS-CoV-2 Monovalent Vaccination (12+ Yrs) PURPLE 01/25/2022,01/25/2021,01/07/2021 RSV, Bivalent, Protein Subun it Rsvpref, Diluent (Abrysvo) 06/12/2024 Tdap 06/12/2024,06/20/2017,05/13/2006 Social History Tobacco Use Types Packs/Day Years Used Date Smoking Tobacco: Never Smokeless Tobacco: Never Tobacco Cessation:Counseling Given: Not Answered Alcohol Use Standard Drinks/Week Comments Yes 0 (1 standard drink = 0.6 oz pur e alcohol) SOCIALLY AUDIT-C Answer Date Recorded Q1: How often do you have a drink containing alc ohol? Monthly or less 11/19/2024 Q2: How many drinks containi ng alcohol do you have on a typical day when you are drinking? 1 or 2 11/19/2024 Q3: How often do you have si x or more drinks on one occasion? Never 11/19/2024 PHQ-2 Answer Date Recorded PHQ-2 Total Score (If total score is 3 or more points, staff should administer the PHQ-9) 0 11/19/2024 PHQ-9 Answer Date Recorded PHQ-9 Total Score 14 10/21/2024 Comments No Sex and Gender Information Value Date Recorded Sex Assigned at Not on file Legal Sex Female 7:39 AM ENTERPRISE ACCOUNT EXECUTIVE Gender Identity Female 10/01/2024 9:41 AM ENTERPRISE ACCOUNT EXECUTIVE Sexual Orientation Not on file Last Filed Vital Signs Vital Sign Reading Time Taken Comments Blood Pressure 118/70 11/19/2024 9:59 AM ENTERPRISE ACCOUNT EXECUTIVE Pulse 78 11/19/2024 9:59 AM ENTERPRISE ACCOUNT EXECUTIVE Temperature 36.4 C (97.5 F) 11/19/2024 9:59 AM ENTERPRISE ACCOUNT EXECUTIVE Respiratory Rate 16 11/19/2024 9:59 AM ENTERPRISE ACCOUNT EXECUTIVE Oxygen Saturation 99% 11/19/2024 9:59 AM ENTERPRISE ACCOUNT EXECUTIVE Inhaled Oxygen Concentration - - Weight 73 kg (161 lb) 11/19/2024 9:59 AM ENTERPRISE ACCOUNT EXECUTIVE Height 166.4 cm (5' 5.5 ) 11/19/2024 9:59 AM ENTERPRISE ACCOUNT EXECUTIVE Body Mass Index 26.38 11/19/2024 9:59 AM ENTERPRISE ACCOUNT EXECUTIVE Plan of Treatment Not on file Procedures Procedure Name Priority Date/Time Associated Diagnosis Comments POC INFLUENZA A/B, COVID-19 ANTIGEN Routine 11/19/2024 10:15 AM ENTERPRISE ACCOUNT EXECUTIVE Cough, unspecified type PAP SMEAR Routine 03/03/2023 from Last 3 Months or Most Recently Relevant to Health Maintenance Results * POC Influenza A/B, COVID-19 antigen (11/19/2024 10:15 AM ENTERPRISE ACCOUNT EXECUTIVE) Influenza A Ag, POC Negative Negative [facility] Influenza B Ag, POC Negative Negative [facility] COVID-19 Ag POC Presumptive Negative Presumptive Negative, Invalid [facility] Nasal 11/19/2024 10:1 5 AM ENTERPRISE ACCOUNT EXECUTIVE Rupal TORRES POINT OF CARE TEST ORDERA BLES Final Result Performing Organization Address City/State/[facility] Co de Phone Number [facility] [address] [id number] * PAP SMEAR (03/03/2023) SCRIBED Pap test normal Historical Provider HEALTH MAINTENANCE Final Result from Last 3 Months or Most Recently Relevant to Health Maintenance Insurance [facility] CHOICE PLUS [employer] PPO POS Care Teams Slate Roofer Helper Relationship Specialty Start Date End Date Shira Bartlett MD [address] [place], [place] [id number] PCP - General Family Medicine 03/14/21
--- OUTSIDE RECORDS SUMMARY | 2025-02-14 10:51 | XMS_ITS | Clinical Summary ---
Author Organization [facility] Address [address] [place] [address] Care Team Providers Care Dag Coater Name Role Phone Shira Bartlett MD Primary Care Provi idalmis Allergies Active Allergy Reactions Criticality Noted Date [...] 10/21/2024 Assessment & Plan (11/03/2024 10:05 AM HEAD BANQUET WAITRESS): Check meds for safety prior to taking. Imodium and antihistamines are not recommended. Continue Tylenol and ibuprofen as needed Assessment & Plan (10/21/2024 8:34 AM HEAD BANQUET WAITRESS): Currently . She states that specialist is aware of her using buspirone and this is okay. Palpitations 08/14/2023 Moderate episode of recurrent major depressive d isorder 10/31/2021 Assessment & Plan (10/21/2024 8:31 AM HEAD BANQUET WAITRESS): Chronic. Improving. Continue to follow with specialist, [...] questions Assessment & Plan (10/31/2021 10:48 AM HEAD BANQUET WAITRESS): Patient reiterated no suicidal thoughts at this [...] 10/31/2021 Assessment & Plan (10/21/2024 8:31 AM HEAD BANQUET WAITRESS): Chronic. Improving. Continue to follow with specialist. [...] questions Assessment & Plan (10/31/2021 10:48 AM HEAD BANQUET WAITRESS): Will start with cymbalta Work on healthy changes for her mood Update me if anything changes or worsen Call for questions or concerns COVID-19 virus infection 09/10/2021 Assessment & Plan (09/10/2021 2:08 PM HEAD BANQUET WAITRESS): Acute-advised to finish Medrol Dosepak. Recommended Mucinex [...] 02/02/2019 Assessment & Plan (10/21/2024 8:31 AM HEAD BANQUET WAITRESS): Chronic. Stable. She is no longer on [...] (02/02/2019 11:33 AM CDT): Will refer to cnc service technician for further guidance Update me after the visit Allergic rhinitis 04/30/2018 Assessment & Plan (10/21/2024 8:30 AM HEAD BANQUET WAITRESS): Chronic. No recent flare-ups. Continue Zyrtec and Flonase as needed Assessment & Plan (10/31/2021 10:49 AM HEAD BANQUET WAITRESS): [facility] Well adult exam 08/11/2017 Overview (10/21/2024): Encouraged a healthy diet, and regular physical activity to her level Wear sun screen, seat belts No texting/drinking and driving Health Maintenance: Last PAP: 02/2023, cnc service technician Last Tdap: 05/2017 Last Flu: up to date Last COVID: encouraged Last RSV: up to date Assessment & Plan (10/21/2024 8:34 AM HEAD BANQUET WAITRESS): Health Maintenance: 10/21/24 Last PAP: 02/2023, cnc service technician Last Tdap: 05/2017 Last Flu: up to date Last COVID: encouraged Last RSV: up to date Labs during done through [facility]. Will complete employer form when needed. Assessment & Plan (10/31/2021 10:47 AM HEAD BANQUET WAITRESS): Encouraged a healthy diet, and regular physical activity to her level Wear sun screen, seat belts No texting/drinking and driving Health Maintenance: Last PAP: will refer to LOANS OFFICER Last Tdap: check immunization record Last Flu:encouraged Last COVID: due for booster Fibromyalgia affecting multiple sites 12/26/2016 Insomnia 09/17/2016 Temporomandibular joint disorder 05/28/2016 Exercise-induced asthma 05/02/2016 Assessment & Plan (10/21/2024 8:30 AM HEAD BANQUET WAITRESS): Chronic. No recent flare-ups. Continue albuterol inhaler as needed. Assessment & Plan (02/05/2022 8:55 AM CDT): With possible exacerbation- will start a medrol dose pack Reviewed the risks/beneits She can use her inhaler every 4-6 hours to help Update me in 48 hours Call for questions Assessment & Plan (10/31/2021 10:50 AM HEAD BANQUET WAITRESS): Albuterol refilled Continue to monitor her symptoms Encouraged flu vaccine Call for questions or concerns Frequent headaches 05/02/2016 Assessment & Plan (10/21/2024 8:31 AM HEAD BANQUET WAITRESS): Chronic. Improved. Monitor Hx of ovarian cyst 05/02/2016 Assessment & Plan (02/02/2019 11:33 AM CDT): [facility] me after the visit Call for questions or concerns Panic attacks 05/02/2016 Assessment & Plan (10/21/2024 8:32 AM HEAD BANQUET WAITRESS): Chronic. Occurring occasionally. Usually recovers without medication. [...] twice daily Cool mist humidifier May use vicks vaporub [...] Encounter for preventive health examination 09/13/2010 10/31/2021 Encounters Date Type Department Care Team Description 12/01/2024 Orders Only [facility] Family Medicine [address] [address] Rupal Zhong PA 11/19/2024 10:00 AM HEAD BANQUET WAITRESS Office Visit [address] [address] Rupal Zhong, BRIAN Mild intermittent asthma with exacerbation (Primary Dx); Viral upper respiratory tract infection; Acute conjunctivitis of both eyes, unspecified acute conjunctivitis type; Cough, unspecified type; BMI 26.0-26.9,adult 11/19/2024 Nurse Triage [facility] Patient Access [address] [facility] [address] [place] [id number] Stacy Carvajal RN from Last 3 Months Immunizations Immunization Administration Dates Next Due DTaP 5 Pertussis 01/23/1999, 6,1995,05/21,1995 HPV, Unspecified 07/14/2009,01/05/2009, 9 Hep A, Unspecified 10/18/2008,05/13/2006 Hep B, Unspecified 1995,1995, 995 HiB 04/20/1996, 5,1995,03/26 IPV 01/23/1999, 5,1995,03/26 Influenza, Quadrivalent, Spl it, Preservative Free, Intramuscular 08/14/2023,01/21/2022,12/31/2019 Influenza, Trivalent, Preser vative Free, Intramuscular 07/12/2024 Influenza, Unspecified 07/11/2024,2021,07/13/2021,01/18,08/13/2010,10/18/2008 MMR 01/23/1999,04/20/1996 Meningococcal ACWY, Unspecified 10/18/2008 PPD TEST 10/26/2024,01/21/2022 Skuid SARS-CoV-2 Monovalent Vaccination (12+ Yrs) PURPLE 01/25/2022,01/25/2021,01/07/2021 RSV, Bivalent, Protein Subun it Rsvpref, Diluent (Abrysvo) 06/12/2024 Tdap 06/12/2024,06/20/2017,05/13/2006 Medical History Medical History Date Comments Asthma Depression Anxiety ADHD (attention deficit hyperactivity disorder) GERD (gastroesophageal reflux disease) Allergic Family History Medical History Relation Name Comments No Known Problems Brother Alcohol abuse Father Beto Glez Depression Father Beto Glez Mental illness Father Beto Glez Cancer Maternal Grandmother Vini Pascual Cervical cancer Maternal Grandmother Vini Pascual Liver cancer Maternal Grandmother Vini Pascual Asthma Mother Diana Pascual Depression Mother Diana Pascual Diabetes Mother Diana Pascual Endometriosis Mother Diana Pascual Mental illness Mother Diana Pascual Breast cancer Other M Great Grandmother Ovarian cancer Neg Hx Pancreatic cancer Neg Hx Prostate cancer Neg Hx Uterine cancer Neg Hx Relation Name Status Comments Brother Alive 1 Father Beto Glez Alive Maternal Grandfather Maternal Grandmother Vini Pascual Mother Diana Pascual Alive Other M Great Grandmother Other Paternal Grandfather Paternal Grandmother Alive Social History Tobacco Use Types Packs/Day Years [...] on file Legal Sex Female 7:39 AM HEAD BANQUET WAITRESS Gender Identity Female 10/01/2024 9:41 AM HEAD BANQUET WAITRESS Sexual Orientation Not on file Obstetrics History Para Term AB IAB SAB Ectopic Multiple Livin g Live Births 0 0 0 0 0 0 0 0 0 0 0 Last Filed Vital Signs Vital Sign Reading Time Taken Comments Blood Pressure 118/70 11/19/2024 9:59 AM HEAD BANQUET WAITRESS Pulse 78 11/19/2024 9:59 AM HEAD BANQUET WAITRESS Temperature 36.4 C (97.5 F) 11/19/2024 9:59 AM HEAD BANQUET WAITRESS Respiratory Rate 16 11/19/2024 9:59 AM HEAD BANQUET WAITRESS Oxygen Saturation 99% 11/19/2024 9:59 AM HEAD BANQUET WAITRESS Inhaled Oxygen Concentration - - Weight 73 kg (161 lb) 11/19/2024 9:59 AM HEAD BANQUET WAITRESS Height 166.4 cm (5' 5.5 ) 11/19/2024 9:59 AM HEAD BANQUET WAITRESS Body Mass Index 26.38 11/19/2024 9:59 AM HEAD BANQUET WAITRESS Plan of Treatment Health Maintenance Due Date Last Done Comments Hepatitis C Screening 1995 Pneumococcal vaccine <65 (1 of 2 - PCV) 2014 Covid-19 Vaccine (2023-2 5 season) 2024 01/25/2022, 01/21/2022, 01/25/2021, Additional history exists Regular Well Visit/Exam 18-64 10/21/2025, 01/07/2022, 10/31/2021, Additional history exists Depression Screening 11/19/2025 11/19/2024, 11/03/2024, 10/21/2024, Additional history exists Cervical Cancer Screening 03/03/2026 03/03/2023, DTaP/Tdap/Td Vaccine (9 - Td or Tdap) 06/12/2034 06/12/2024, 06/20/2017, 05/13/2006, Additional history exists Hepatitis B Screening Completed 1995 , 1995, 1995 HPV Vaccines Completed 07/14/2009, 12/12, 10/18/2008 Influenza Vaccine Completed 07/12/2024, , 08/14/2023, Additional history exists Varicella Vaccines Discontinued Procedures Procedure Name Priority Date/Time Associated Diagnosis Comments POC INFLUENZA A/B, COVID-19 ANTIGEN Routine 11/19/2024 10:15 AM HEAD BANQUET WAITRESS Cough, unspecified type PAP SMEAR Routine 03/03/2023 from Last 3 Months or Most Recently Relevant to Health Maintenance Results * POC Influenza A/B, COVID-19 antigen (11/19/2024 10:15 AM HEAD BANQUET WAITRESS) Influenza A Ag, POC Negative Negative [facility] Influenza B Ag, POC Negative Negative [facility] COVID-19 Ag POC Presumptive Negative Presumptive Negative, Invalid [facility] Nasal 11/19/2024 10:1 5 AM HEAD BANQUET WAITRESS Rupal TORRES POINT OF CARE TEST ORDERA BLES Final Result [facility] [address] [address] * PAP SMEAR (03/03/2023) SCRIBED Pap test normal Historical Provider HEALTH MAINTENANCE Final Result from Last 3 Months or Most Recently Relevant to Health Maintenance Insurance [facility] PL[facility] H[facility]PPO Address: [address] [address] [place] [address] [employer] P[employer] POS Care Teams Dag Coater Relationship Specialty Start Date End Date Shira Bartlett MD [address] [place], [place] [id number] PCP - General Family Medicine 03/14/21
--- OUTSIDE RECORDS SUMMARY | 2025-02-14 10:51 | XMS_ITS | Encounter Summary ---
Author Organization [facility] Facility Care Team Providers Care Rn Neurology Name Role Phone Shira Bartlett MD Primary Care Provi idalmis Shira Bartlett MD Primary Care Provi idalmis Carmen Walters NP Primary Care Provider [phone] Carmen Walters OCEAN FREIGHT FORWARDER Primary Care Provider [phone] Shira Bartlett MD Primary Care Provi idalmis Encounter Details Date Type Department Care Team (Latest Contact Info) Description 04/02/2017 Orders Only [facility]IN[facility] ProviderGómez MD [address] [place] [id number] Social History Tobacco Use Types Packs/Day Years Used Date Smoking Tobacco: Never Assessed Comments Unknown Sex and Gender Information Value Date Recorded Sex Assigned at Not on file Legal Sex Female 7:39 AM ROOFING SUPERVISOR Gender Identity Female 10/01/2024 9:41 AM ROOFING SUPERVISOR Sexual Orientation Not on file documented as of this encounter Plan of Treatment Not on file documented as of this encounter Procedures Procedure Name Priority Date/Time Associated Diagnosis Comments SCAN - LABS 04/02/2017 12:00 AM CDT SCAN - LABS 04/02/2017 12:00 AM CDT documented in this encounter Results * SCAN - LABS (04/02/2017 12:00 AM CDT) Narrative 04/02/2017 12:00 AM CDT Ordered by an unspecified provider. us Historical Provider Final Res ult * SCAN - LABS (04/02/2017 12:00 AM CDT) Narrative 04/02/2017 12:00 AM CDT Ordered by an unspecified provider. us Historical Provider Final Res ult documented in this encounter Visit Diagnoses Not on filedocumented in this encounter Additional Health Concerns Infection Onset Date Last Indicated Resolved Time COVID: Suspected 02/05/2022 02/05/2022 02/05/2022 9:03 PM CDT COVID: Suspected 11/19/2024 11/19/2024 11/19/2024 10:16 AM ROOFING SUPERVISOR documented as of this encounter Care Teams Rn Neurology Relationship Specialty Start Date End Date Shira Bartlett MD [address] [place] [address] PCP - General 06/11/17 08/10/17 Shira Bartlett MD [address] [place] [address] PCP - General 08/11/17 01/14/19 Carmen Walters NP [address] [place] [address] PCP - General 03/26/19 03/13/21 Carmen Walters NP [address] [place] [address] PCP - General 01/15/19 03/25/19 Shira Bartlett MD [facility] [address] [place] [address] PCP - General Family Medicine 03/14/21 documented as of this encounter
--- OUTSIDE RECORDS SUMMARY | 2025-02-14 10:51 | XMS_ITS | Encounter Summary ---
Author Organization [facility] Facility Care Team Providers Care Hide Spreader Name Role Phone Shira Bartlett MD Primary Care Provi idalmis Shira Bartlett MD Primary Care Provi idalmis Carmen Walters NP Primary Care Provider [phone] Carmen Walters UPHOLSTERY DEPARTMENT SUPERVISOR Primary Care Provider [phone] Shira Bartlett MD Primary Care Provi idalmis Encounter Details Date Type Department Care Team (Latest Contact Info) Description 04/10/2017 Orders Only [facility] ProviderGómez MD [address] [place] [address] Social History Tobacco Use Types Packs/Day Years Used Date Smoking Tobacco: Never Assessed Comments Unknown Sex and Gender Information Value Date Recorded Sex Assigned at Not on file Legal Sex Female 7:39 AM COURTESY CLERK Gender Identity Female 10/01/2024 9:41 AM COURTESY CLERK Sexual Orientation Not on file documented as of this encounter Plan of Treatment Not on file documented as of this encounter Procedures Procedure Name Priority Date/Time Associated Diagnosis Comments CARDIOLOGY REPORT 04/10/2017 12: 00 AM CDT documented in this encounter Results * CARDIOLOGY REPORT (04/10/2017 12:00 AM CDT) Anatomical Region Laterality Modality Other Narrative 04/10/2017 12:00 AM CDT Ordered by an unspecified provider. us Historical Provider [facility] GERONIMO SELF Final Result documented in this encounter Visit Diagnoses Not on filedocumented in this encounter Additional Health Concerns Infection Onset Date Last Indicated Resolved Time COVID: Suspected 02/05/2022 02/05/2022 02/05/2022 9:03 PM CDT COVID: Suspected 11/19/2024 11/19/2024 11/19/2024 10:16 AM COURTESY CLERK documented as of this encounter Care Teams Hide Spreader Relationship Specialty Start Date End Date Shira Bartlett MD [address] [place] [address] PCP - General 06/11/17 08/10/17 Shira Bartlett MD [address] [place], [place] [address] PCP - General 08/11/17 01/14/19 Carmen Walters UPHOLSTERY DEPARTMENT SUPERVISOR [address] [place], [place] [id number] PCP - General 03/26/19 03/13/21 Carmen Walters UPHOLSTERY DEPARTMENT SUPERVISOR [address] [place], [place] [address] PCP - General 01/15/19 03/25/19 Shira Bartlett MD [address] [place], [place] [address] PCP - General Family Medicine 03/14/21 documented as of this encounter
--- OUTSIDE RECORDS SUMMARY | 2025-02-14 10:51 | XMS_ITS | Encounter Summary ---
Author Organization [facility] Facility Care Team Providers Care Mainframe Developer Name Role Phone Shira Bartlett MD Primary Care Provi idalmis Shira Bartlett MD Primary Care Provi idalmis Carmen Walters NP Primary Care Provider [phone] Carmen Walters PODIATRIST ASSISTANT Primary Care Provider [phone] Shira Bartlett MD Primary Care Provi idalmis Encounter Details Date Type Department Care Team (Latest Contact Info) Description 04/14/2017 Orders Only [facility] ProviderGómez MD [address] [place] [address] Social History Tobacco Use Types Packs/Day Years Used Date Smoking Tobacco: Never Assessed Comments Unknown Sex and Gender Information Value Date Recorded Sex Assigned at Not on file Legal Sex Female 7:39 AM SULFONATION EQUIPMENT OPERATOR Gender Identity Female 10/01/2024 9:41 AM SULFONATION EQUIPMENT OPERATOR Sexual Orientation Not on file documented as of this encounter Plan of Treatment Not on file documented as of this encounter Procedures Procedure Name Priority Date/Time Associated Diagnosis Comments SCAN - LABS 04/14/2017 12:00 AM CDT documented in this encounter Results * SCAN - LABS (04/14/2017 12:00 AM CDT) Narrative 04/14/2017 12:00 AM CDT Ordered by an unspecified provider. us Historical Provider Final Res ult documented in this encounter Visit Diagnoses Not on filedocumented in this encounter Additional Health Concerns Infection Onset Date Last Indicated Resolved Time COVID: Suspected 02/05/2022 02/05/2022 02/05/2022 9:03 PM CDT COVID: Suspected 11/19/2024 11/19/2024 11/19/2024 10:16 AM SULFONATION EQUIPMENT OPERATOR documented as of this encounter Care Teams Mainframe Developer Relationship Specialty Start Date End Date Shira Bartlett MD [address] [place] [address] PCP - General 06/11/17 08/10/17 Shira Bartlett MD [address] [place] [address] PCP - General 08/11/17 01/14/19 Carmen Walters PODIATRIST ASSISTANT [address] [place] [address] PCP - General 03/26/19 03/13/21 Carmen Walters PODIATRIST ASSISTANT [address] [place] [address] PCP - General 01/15/19 03/25/19 Shira Bartlett MD [address] [place] [address] PCP - General Family Medicine 03/14/21 documented as of this encounter
--- OUTSIDE RECORDS SUMMARY | 2025-02-14 10:51 | XMS_ITS | Encounter Summary ---
Author Organization [facility] Facility Care Team Providers Care Concrete Paver Name Role Phone Shira Bartlett MD Primary Care Provi idalmis Shira Bartlett MD Primary Care Provi idalmis Carmen Walters NP Primary Care Provider [phone] Carmen Walters POMOLOGIST Primary Care Provider [phone] Shira Bartlett MD Primary Care Provi idalmis Encounter Details Date Type Department Care Team (Latest Contact Info) Description 05/13/2017 Orders Only [facility] ProviderGómez MD [address] [place] [address] Social History Tobacco Use Types Packs/Day Years Used Date Smoking Tobacco: Never Assessed Comments Unknown Sex and Gender Information Value Date Recorded Sex Assigned at Not on file Legal Sex Female 7:39 AM A&P TECHNICIAN Gender Identity Female 10/01/2024 9:41 AM A&P TECHNICIAN Sexual Orientation Not on file documented as of this encounter Plan of Treatment Not on file documented as of this encounter Procedures Procedure Name Priority Date/Time Associated Diagnosis Comments SCAN - LABS 05/13/2017 12:00 AM CDT documented in this encounter Results * SCAN - LABS (05/13/2017 12:00 AM CDT) Narrative 05/13/2017 12:00 AM CDT Ordered by an unspecified provider. us Historical Provider Final Res ult documented in this encounter Visit Diagnoses Not on filedocumented in this encounter Additional Health Concerns Infection Onset Date Last Indicated Resolved Time COVID: Suspected 02/05/2022 02/05/2022 02/05/2022 9:03 PM CDT COVID: Suspected 11/19/2024 11/19/2024 11/19/2024 10:16 AM A&P TECHNICIAN documented as of this encounter Care Teams Concrete Paver Relationship Specialty Start Date End Date Shira Bartlett MD [address] [place] [address] PCP - General 06/11/17 08/10/17 Shira Bartlett MD [address] [place] [address] PCP - General 08/11/17 01/14/19 Carmen Walters POMOLOGIST [address] [place] [address] PCP - General 03/26/19 03/13/21 Carmen Walters POMOLOGIST [address] [place] [address] PCP - General 01/15/19 03/25/19 Shira Bartlett MD [address] [place] [address] PCP - General Family Medicine 03/14/21 documented as of this encounter
[2025-02-14 12:26] LABS: Glucose 1 Hour 119 mg/dL
[2025-02-14 13:28] LABS: Glucose 2 Hour 82 mg/dL
== END 2025-02-14 10:00 | disposition home or self-care (01) ==
LOC: ANHLAB 10:02
PROVIDERS: PCP Family Medicine; Visit Provider Obstetrics & Gynecology
DX: Z86.32 Personal history of gestational diabetes (principal)
CPT/HCPCS: 36415; 82951

== ENCOUNTER 2025-08-03 08:17 | Emergency (ER) | payer OTHER, SELFPAY ==
[2025-08-03 08:39] VITALS: BP 114/65; PULSE 88; RESP 16; TEMP 36.3; O2SAT 99
--- NOTE | 2025-08-03 08:46 | ED.URI ---
HPI - URI/Sore Throat General Chief Complaint: Upper Respiratory Infection Stated Complaint: EARS FULL/CHEST & THROAT TIGHTNESS/SINUS/COUGH Time Seen by Provider: 08/03/25 08:46 Source: patient Mode of arrival: ambulatory Limitations: no limitations History of Present Illness HPI Narrative: 30-year-old female presents today with complaint of nasal congestion, sore throat, mild cough, headache and fatigue for the past 2-3 days. Afebrile. Also reports itchy rash to face, bilateral arms for the past month. All systems reviewed and negative except as noted above. Related Data Home Medications ?Medication ?Instructions ?Recorded ?Confirmed ?Last Taken ?Type albuterol sulfate 90 mcg/actuation 1 inh inhalation Q4-6H PRN 03/03/23 08/03/25 Unknown History breath activated powder inhaler Shortness Of Breath Or Wheezing hydroxyzine HCl 25 mg tablet 25 mg PO BID PRN Anxiety 03/03/23 08/03/25 Unknown History cetirizine 10 mg capsule (Zyrtec) 10 mg PO DAILY PRN Unknown 08/17/24 08/03/25 Unknown History vits no.126-ferrous fum tablet PO 08/17/24 07/13/25 Unknown History 28 mg iron-folic acid 800 mcg tablet (Classic ) sertraline 100 mg tablet mg PO 08/17/24 07/13/25 Unknown History buspirone 15 mg tablet 15 mg PO TID 11/17/24 08/03/25 Unknown History desvenlafaxine succinate 25 mg mg PO 11/17/24 07/13/25 Unknown History tablet,extended release 24 hr Allergies Allergy/AdvReac Type Severity Reaction Status Date / Time adhesive AdvReac Intermediate Hives Verified 08/03/25 08:39 latex AdvReac Mild Hives Verified 08/03/25 08:39 [facility] Past Medical History Medical History anxiety depression Anxiety and depression Asthma Fibromyalgia Family History Family History Grandparent Cervical cancer maternal grandmother Carcinoma of colon maternal grandmother Mother Diabetes mellitus Hepatitis C Father Glaucoma Sibling Glaucoma Hypertension Social History Social History (Updated 07/13/25 @ 15:30 by Marium Roberson CMA) Smoking status: Never smoker Second hand tobacco smoke exposure: No Alcohol intake: current Alcohol use details: rarely Substance use: never Substance use type: does not use Other substance usage details: 1-2 month Last use: 07/2023 Do You Feel Safe in your Home?: Yes Lack of Transportation: No Lack of Food: Never True Current Housing: I Have Housing Concerned About Future Housing: No Difficulty Paying Gas/Electric Bills: No Difficulty Paying for Meds: No Currently Unemployed: No Education: Bachelor's Degree Difficulty w/ Childcare or Family Care: No Living arrangements: other Additional living arrangements comments: engaged Occupation/Education: occupation 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 There is no relevant family history pertinent to the presenting complaint. Exam Narrative: GENERAL: This is a well-nourished, well-developed patient, in no apparent distress. HEAD: normocephalic, atraumatic. EYES: PERRL. Sclera clear/white. Vision is grossly intact. EARS: External ears normal, auditory canals clear and without drainage, TMs normal without perforation. Hearing grossly intact. NOSE: External nose normal with nasal congestion, clear nasal drainage, erythema to bilateral nares THROAT: Mucous membranes moist, mild erythema postnasal drainage. No swelling or exudates NECK: Neck supple, non-tender without lymphadenopathy, masses or thyromegaly. CARDIOVASCULAR: Regular rate and rhythm without murmurs, gallops, or rubs. RESPIRATORY: Clear to auscultation. Breath sounds equal bilaterally. No wheezes, rales, or rhonchi. SKIN: warm, Dry, intact with good texture and turgor. Erythematous, scabbed lesions to forehead, left cheek, bilateral forearms NEURO: awake, alert, and oriented to person, place and time. There were no obvious focal neurologic abnormalities. EXTREMITIES: No joint tenderness, effusion, or edema noted. Course Course Level of Care: Express Care Visit Vital Signs Vital signs: Vital Signs Temperature 36.3 C L 08/03/25 08:39 Pulse Rate 88 08/03/25 08:39 Respiratory Rate 16 08/03/25 08:39 Blood Pressure 114/65 08/03/25 08:39 Pulse Oximetry 99 08/03/25 08:39 Temperature 36.3 C L 08/03/25 08:39 Pulse Rate 88 08/03/25 08:39 Respiratory Rate 16 08/03/25 08:39 Blood Pressure 114/65 08/03/25 08:39 Pulse Oximetry 99 08/03/25 08:39 Reviewed MDM - URI/Sore Throat MDM Narrative Medical decision making narrative: Will treat patient with clindamycin for possible staph infection. Has had itchy scabbed lesions to face and bilateral arms for approximately 1 with. He had a COVID, strep and influenza testing. Patient has URI symptoms are viral. Recommend [id number] medications to treat them. Patient is currently . Differential Diagnosis Differential diagnosis: Likely upper respiratory infection, sinusitis, viral infection, influenza and pharyngitis Lab Data Labs: Lab Results 08/03/25 Range/Units 08:32 POC Influenza A Ag Negative (Negative) POC Influenza B Ag Negative (Negative) POC SARS CoV-2 Ag Negative (Negative) POC Grp A Strep Screen Negative (Negative) Discharge Plan Discharge Clinical Impression: Viral upper respiratory tract infection with cough, Infection, skin, staph Patient Disposition: Home Condition: Stable Instructions: Antibiotic Form, Cold Symptoms (ED) Additional Instructions: Your COVID, flu and strep test was negative today. A strep culture was ordered and results will take 24-48 hours. If your strep culture is positive we will call you at that time and prescribed an antibiotic. Take [id number] Flonase as directed on packaging to treat nasal congestion. Take Tylenol or ibuprofen every 6-8 hours as needed for pain and fever. Drink at least 64 oz of water a day. Take antibiotic as prescribed until gone to treat skin infection. Apply antibiotic ointment to affected area as prescribed. Follow-up with your primary care physician if symptoms are not improving. Patient Language: Nigerian Prescriptions: New clindamycin HCl 300 mg capsule 300 mg PO Q8H 10 Days Qty: 30 0RF mupirocin 2 % ointment 1 applic topical BID 7 Days Qty: 15 0RF fluticasone propionate [Flonase Allergy Relief] 50 mcg/actuation spray,suspension 1 spray intranasal BID Qty: 16 0RF Rx Instructions: administer into each nostril No Action sertraline 100 mg tablet PO Classic 28 mg iron- 800 mcg tablet PO Zyrtec 10 mg capsule 10 mg PO DAILY PRN (Reason: Unknown) albuterol sulfate 90 mcg/actuation aerosol powdr breath activated 1 inh inhalation Q4-6H PRN (Reason: Shortness Of Breath Or Wheezing) hydroxyzine HCl 25 mg tablet 25 mg PO BID PRN (Reason: Anxiety) buspirone 15 mg tablet 15 mg PO TID desvenlafaxine succinate 25 mg tablet extended release 24 hr PO acetaminophen 500 mg tablet 500 mg PO Q6H PRN (Reason: pain) Qty: 30 0RF Follow-up/Referrals: Tri,MD Shira [Primary Care Provider, Unknown] Stand Alone Forms: Work/School Release IP Time of Disposition: 08:58
[2025-08-03 08:55] LABS: EDCOVIDSCREEN Negative (Negative); EDINFLUASCREEN Negative (Negative); EDINFLUBSCREEN Negative (Negative); EDSTREPNEGPOS1 Negative (Negative)
== END 2025-08-03 09:03 | disposition home or self-care (01) ==
PROVIDERS: Emergency Provider Nurse Practitioner Family; PCP Family Medicine
DX: J06.9 Acute upper respiratory infection, unspecified (principal); R05.9 Cough, unspecified; L08.9 Local infection of the skin and subcutaneous tissue, unspecified; B95.8 Unspecified staphylococcus as the cause of diseases classified elsewhere; Z20.822 Contact with and (suspected) exposure to COVID-19; J45.909 Unspecified asthma, uncomplicated; M79.7 Fibromyalgia; F41.9 Anxiety disorder, unspecified; F32.A Depression, unspecified
CPT/HCPCS: 87081; 87426; 87804; 87880; 99213; G0463

== ENCOUNTER 2025-09-05 13:37 | Outpatient (CLI) | payer OTHER, SELFPAY ==
[2025-09-05 14:10] LABS: Hematocrit 37.6 % (37.0-47.0); Hemoglobin 11.9 g/dL (12.0-15.0); Immature Granulocyte Percent A 0.3 % (0-0.5); Lymphocytes Absolute Auto 1.25 K/mm3 (0.9-3.2); Mean Corpuscular HGB Conc 31.6 g/dl (32-36); Mean Corpuscular Hemoglobin 27.3 pg (26-34); Mean Corpuscular Volume 86.2 fl (80-100); Nucleated Red Blood Cells Absolute Auto 0.000 K/mm3 (0.0-0.012); Nucleated Red Blood Cells Perc 0.0 % (0.0-0.2); Platelet Count Result 219 k/mm3 (150-375); Red Blood Count 4.36 M/mm3 (4.2-5.4); White Blood Count 9.4 K/mm3 (4.5-10.0)
[2025-09-05 14:25] LABS: Alanine Aminotransferase 19 U/L (6-35); Albumin Level 4.7 g/dL (3.5-5.1); Alkaline Phosphatase 72 U/L (38-126); Anion Gap 8 mmol/L (4-12); Aspartate Amino Transferase 28 U/L (14-36); Bilirubin,Total 1.1 mg/dL (0.2-1.3); Blood Urea Nitrogen 14 mg/dL (7-17); Calcium 9.5 mg/dL (8.4-10.2); Carbon Dioxide 31 mmol/L (22-30); Chloride 101 mmol/L (98-107); Estimated Glomerular Filt Rate > 60; Glucose 76 mg/dL (65-110); Potassium 3.8 mmol/L (3.4-5.0); Sodium 140 mmol/L (137-145); Total Protein 8.0 g/dL (6.3-8.2)
[2025-09-05 14:43] LABS: Free T4 Free Thyroxine 0.75 ng/dL (0.78-2.19)
[2025-09-05 15:00] LABS: Thyroid Stimulating Hormone 0.353 uIU/mL (0.465-4.680)
[2025-09-05 15:35] LABS: Vitamin B12 597.0 pg/mL (239-931)
--- OUTSIDE RECORDS SUMMARY | 2025-09-05 16:07 | XMS_ITS | Encounter Summary ---
Author Organization [facility] Facility Care Team Providers Care Hair Rooting Machine Operator Name Role Phone Shira Bartlett MD Primary Care Provi idalmis Shira Bartlett MD Primary Care Provi idalmis Carmen Walters SALESPERSON PARTS Primary Care Provider [phone] Carmen Walters SALESPERSON PARTS Primary Care Provider [phone] Shira Bartlett MD Primary Care Provi idalmis Encounter Details Date Type Department Care Team (Latest Contact Info) Description 04/02/2017 Orders Only [facility] CLINCONV ProviderGómez MD [address] [place] [id number] Social History Tobacco Use Types Packs/Day Years Used Date Smoking Tobacco: Never Assessed Comments Unknown Sex and Gender Information Value Date Recorded Sex Assigned at Not on file Legal Sex Female 7:39 AM MANAGER OFFICE Gender Identity Female 10/01/2024 9:41 AM MANAGER OFFICE Sexual Orientation Not on file documented as of this encounter Functional Status documented as of this encounter Plan of Treatment Not on file documented as of this encounter Procedures Procedure Name Priority Date/Time Associated Diagnosis Comments SCAN - LABS 04/02/2017 12:00 AM CDT SCAN - LABS 04/02/2017 12:00 AM CDT documented in this encounter Results * SCAN - LABS (04/02/2017 12:00 AM CDT) Narrative 04/02/2017 12:00 AM CDT Ordered by an unspecified provider. Historical Provider Final Res ult * SCAN - LABS (04/02/2017 12:00 AM CDT) Narrative 04/02/2017 12:00 AM CDT Ordered by an unspecified provider. Historical Provider Final Res ult documented in this encounter Visit Diagnoses Not on filedocumented in this encounter Additional Health Concerns Infection Onset Date Last Indicated Resolved Time COVID: Suspected 02/05/2022 02/05/2022 02/05/2022 9:03 PM CDT COVID: Suspected 11/19/2024 11/19/2024 11/19/2024 10:16 AM MANAGER OFFICE documented as of this encounter Care Teams Hair Rooting Machine Operator Relationship Specialty Start Date End Date Shira Bartlett MD [address] [place] [address] PCP - General 06/11/17 08/10/17 Shira Bartlett MD [address] [place] [address] PCP - General 08/11/17 01/14/19 Carmen Walters NP [address] [place], [place] [address] PCP - General 03/26/19 03/13/21 Carmen Walters NP [address] [place], [place] [address] PCP - General 01/15/19 03/25/19 Shira Bartlett MD [facility] [address] [place] [address] PCP - General Family Medicine 03/14/21 documented as of this encounter
--- OUTSIDE RECORDS SUMMARY | 2025-09-05 16:07 | XMS_ITS | Encounter Summary ---
Author Organization [facility] Facility Care Team Providers Care Operations Lead Name Role Phone Shira Bartlett MD Primary Care Provi idalmis Shira Bartlett MD Primary Care Provi idalmis Carmen Walters GLOVE BOARDER Primary Care Provider [phone] Carmen Walters GLOVE BOARDER Primary Care Provider [phone] Shira Bartlett MD Primary Care Provi idalmis Encounter Details Date Type Department Care Team (Latest Contact Info) Description 05/13/2017 Orders Only [facility] CLINCONV ProviderGómez MD [address] [place] [address] Social History Tobacco Use Types Packs/Day Years Used Date Smoking Tobacco: Never Assessed Comments Unknown Sex and Gender Information Value Date Recorded Sex Assigned at Not on file Legal Sex Female 7:39 AM IRONING WORKER Gender Identity Female 10/01/2024 9:41 AM IRONING WORKER Sexual Orientation Not on file documented as [...] COVID: Suspected 11/19/2024 11/19/2024 11/19/2024 10:16 AM IRONING WORKER documented as of this encounter Care Teams Operations Lead Relationship Specialty Start Date End Date Shira Bartlett MD [address] [place] [address] PCP - General 06/11/17 08/10/17 Shira Bartlett MD [address] [place], [place] [address] PCP - General 08/11/17 01/14/19 Carmen Walters GLOVE BOARDER [address] [place], [place] [address] PCP - General 03/26/19 03/13/21 Carmen Walters GLOVE BOARDER [address] [place], [place] [address] PCP - General 01/15/19 03/25/19 Shira Bartlett MD [address] [place], [place] [address] PCP - General Family Medicine 03/14/21 documented as of this encounter
--- OUTSIDE RECORDS SUMMARY | 2025-09-05 16:07 | XMS_ITS | Encounter Summary ---
Author Organization [facility] Facility Care Team Providers Care Maintenance Manager Name Role Phone Shira Bartlett MD Primary Care Provi idalmis Shira Bartlett MD Primary Care Provi idalmis Carmen Walters FRONT OFFICE ASSISTANT Primary Care Provider [phone] Carmen Walters FRONT OFFICE ASSISTANT Primary Care Provider [phone] Shira Bartlett MD Primary Care Provi idalmis Encounter Details Date Type Department Care Team (Latest Contact Info) Description 04/10/2017 Orders Only [facility] CLINCONV ProviderGómez MD [address] [place] [address] Social History Tobacco Use Types Packs/Day Years Used Date Smoking Tobacco: Never Assessed Comments Unknown Sex and Gender Information Value Date Recorded Sex Assigned at Not on file Legal Sex Female 7:39 AM CRACKLING PRESS OPERATOR Gender Identity Female 10/01/2024 9:41 AM CRACKLING PRESS OPERATOR Sexual Orientation Not on file documented [...] COVID: Suspected 11/19/2024 11/19/2024 11/19/2024 10:16 AM CRACKLING PRESS OPERATOR documented as of this encounter Care Teams Maintenance Manager Relationship Specialty Start Date End Date Shira Bartlett MD [address] [place] [address] PCP - General 06/11/17 08/10/17 Shira Bartlett MD [address] [place], [place] [address] PCP - General 08/11/17 01/14/19 Carmen Walters FRONT OFFICE ASSISTANT [address] [place], [place] [address] PCP - General 03/26/19 03/13/21 Carmen Walters FRONT OFFICE ASSISTANT [address] [place], [place] [address] PCP - General 01/15/19 03/25/19 Shira Batrlett MD [address] [place], [place] [address] PCP - General Family Medicine 03/14/21 documented as of this encounter
--- OUTSIDE RECORDS SUMMARY | 2025-09-05 16:07 | XMS_ITS | Encounter Summary ---
Author Organization [facility] Facility Care Team Providers Care Outboard Motor Mechanic Name Role Phone Shira Bartlett MD Primary Care Provi idalmis Shira Bartlett MD Primary Care Provi idalmis Carmen Walters MICROSOFT DEVELOPER Primary Care Provider [phone] Carmen Walters MICROSOFT DEVELOPER Primary Care Provider [phone] Shira Bartlett MD Primary Care Provi idalmis Encounter Details Date Type Department Care Team (Latest Contact Info) Description 04/14/2017 Orders Only [facility] CLINCONV ProviderGómez MD [address] [place] [address] Social History Tobacco Use Types Packs/Day Years Used Date Smoking Tobacco: Never Assessed Comments Unknown Sex and Gender Information Value Date Recorded Sex Assigned at Not on file Legal Sex Female 7:39 AM SUPERVISOR PIGMENT MAKING Gender Identity Female 10/01/2024 9:41 AM SUPERVISOR PIGMENT MAKING Sexual Orientation Not on file documented as [...] COVID: Suspected 11/19/2024 11/19/2024 11/19/2024 10:16 AM SUPERVISOR PIGMENT MAKING documented as of this encounter Care Teams Outboard Motor Mechanic Relationship Specialty Start Date End Date Shira Bartlett MD [address] [place] [address] PCP - General 06/11/17 08/10/17 Shira Bartlett MD [address] [place] [address] PCP - General 08/11/17 01/14/19 Carmen Walters NP [address] [place], [place] [address] PCP - General 03/26/19 03/13/21 Carmen Walters MICROSOFT DEVELOPER [address] [place], [place] [address] PCP - General 01/15/19 03/25/19 Shira Bartlett MD [address] [place] [address] PCP - General Family Medicine 03/14/21 documented as of this encounter
--- OUTSIDE RECORDS SUMMARY | 2025-09-05 16:07 | XMS_ITS | Encounter Summary ---
Author Organization [facility] Facility Care Team Providers Care Equipment Operation Instructor Name Role Phone Shira Bartlett MD Primary Care Provi idalmis Shira Bartlett MD Primary Care Provi idalmis Carmen Walters LUMBER SALES SUPERVISOR Primary Care Provider [phone] Carmen Walters LUMBER SALES SUPERVISOR Primary Care Provider [phone] Shira Bartlett MD Primary Care Provi idalmis Encounter Details Date Type Department Care Team (Latest Contact Info) Description 04/15/2017 Orders Only [facility] CLINCONV ProviderGómez MD [address] [place] [address] Social History Tobacco Use Types Packs/Day Years Used Date Smoking Tobacco: Never Assessed Comments Unknown Sex and Gender Information Value Date Recorded Sex Assigned at Not on file Legal Sex Female 7:39 AM TEST CENTER ADMINISTRATOR Gender Identity Female 10/01/2024 9:41 AM TEST CENTER ADMINISTRATOR Sexual Orientation Not on file documented as [...] COVID: Suspected 11/19/2024 11/19/2024 11/19/2024 10:16 AM TEST CENTER ADMINISTRATOR documented as of this encounter Care Teams Equipment Operation Instructor Relationship Specialty Start Date End Date Shira Bartlett MD [address] [place] [address] PCP - General 06/11/17 08/10/17 Shira Bartlett MD [address] [place] [address] PCP - General 08/11/17 01/14/19 Carmen Walters NP [address] [place], [place] [address] PCP - General 03/26/19 03/13/21 Carmen Walters LUMBER SALES SUPERVISOR [address] [place], [place] [address] PCP - General 01/15/19 03/25/19 Shira Bartlett MD [address] [place] [address] PCP - General Family Medicine 03/14/21 documented as of this encounter
--- OUTSIDE RECORDS SUMMARY | 2025-09-05 16:07 | XMS_ITS | Encounter Summary ---
Author Organization [facility] Facility Care Team Providers Care Electric Razor Assembler Name Role Phone Shira Bartlett MD Primary Care Provi idalmis Carmen Walters NP Primary Care Provider [phone] Carmen Walters METAL FABRICATING INSPECTOR Primary Care Provider [phone] Shira Bartlett MD Primary Care Provi idalmis Encounter Details Date Type Department Care Team (Latest Contact Info) Description 11/25/2017 Orders Only [facility] CLINCONV ProviderGómez MD [address] [place] [address] Social History Tobacco Use Types Packs/Day Years Used Date Smoking Tobacco: Never Comments Unknown Sex and Gender Information Value Date Recorded Sex Assigned at Not on file Legal Sex Female 7:39 AM ROOF PAINTER Gender Identity Female 10/01/2024 9:41 AM ROOF PAINTER Sexual Orientation Not on file documented as of this encounter Functional Status documented as of this encounter Plan of Treatment Not on file documented as of this encounter Procedures Procedure Name Priority Date/Time Associated Diagnosis Comments CARDIOLOGY REPORT 12/02/2017 12: 00 AM ROOF PAINTER documented in this encounter Results * CARDIOLOGY REPORT (12/02/2017 12:00 AM ROOF PAINTER) Anatomical Region Laterality Modality Other Narrative 12/02/2017 12:00 AM ROOF PAINTER Ordered by an unspecified provider. us Historical Provider [facility] GERONIMO SELF Final Result documented in this encounter Visit Diagnoses Not on filedocumented in this encounter Additional Health Concerns Infection Onset Date Last Indicated Resolved Time COVID: Suspected 02/05/2022 02/05/2022 02/05/2022 9:03 PM CDT COVID: Suspected 11/19/2024 11/19/2024 11/19/2024 10:16 AM ROOF PAINTER documented as of this encounter Care Teams Electric Razor Assembler Relationship Specialty Start Date End Date Shira Bartlett MD [address] [place] [address] PCP - General 08/11/17 01/14/19 Carmen Walters NP [address] [place] [address] PCP - General 03/26/19 03/13/21 Carmen Walters NP [address] [place], [place] [address] PCP - General 01/15/19 03/25/19 Shira Bartlett MD [address] [place] [address] PCP - General Family Medicine 03/14/21 documented as of this encounter
--- OUTSIDE RECORDS SUMMARY | 2025-09-05 16:08 | XMS_ITS | Clinical Summary ---
Author Organization [facility] Address [address] [place] [address] Care Team Providers Care Patient Liaison Name Role Phone Shira Bartlett MD Primary Care Provi idalmis Allergies Active Allergy Reactions Criticality Noted Date Comments Adhesive Hives High 11/17/2024 Latex Unknown 01/11/2019 Medications cetirizine (ZyrTEC) 10 mg tablet Take 1 tablet (10 mg total) by mouth daily Active Estarylla 0.25-35 mg-mcg per tablet TAKE 1 TABLET BY MOUTH DAILY 84 tablet 3 2 Active Additional Information Patient not taking.Reported on 06/28/2025 ibuprofen (ADVIL,MOTRIN) 600 mg tabletIndicatio ns:Fibromyalgia Take [...] Active Additional Information Patient taking differently: 15 mgoral3 times daily, Reported on 06/28/2025 fluticasone propionate (FLONASE) 50 mcg/actuation nasal sprayIndication [...] mg total) by mouth daily 5 Active desvenlafaxine ER (PRISTIQ) 100 mg 24 hr tablet Take 1 tablet (100 mg total) by mouth daily Active Active Problems Problem Noted Date Diagnosed Date (infant) 10/21/2024 Assessment & Plan (11/03/2024 10:05 AM MANAGER VIDEO): Check meds for safety prior to taking. Imodium and antihistamines are not recommended. Continue Tylenol and ibuprofen as needed Assessment & Plan (10/21/2024 8:34 AM MANAGER VIDEO): Currently . She states that specialist is aware of her using buspirone and this is okay. Palpitations 08/14/2023 Moderate episode of recurrent major depressive d isorder 10/31/2021 Assessment & Plan (10/21/2024 8:31 AM MANAGER VIDEO): Chronic. Improving. Continue to follow with specialist, [...] questions Assessment & Plan (10/31/2021 10:48 AM MANAGER VIDEO): Patient reiterated no suicidal thoughts at this [...] 10/31/2021 Assessment & Plan (10/21/2024 8:31 AM MANAGER VIDEO): Chronic. Improving. Continue to follow with specialist. [...] questions Assessment & Plan (10/31/2021 10:48 AM MANAGER VIDEO): Will start with cymbalta Work on healthy changes for her mood Update me if anything changes or worsen Call for questions or concerns COVID-19 virus infection 09/10/2021 Assessment & Plan (09/10/2021 2:08 PM MANAGER VIDEO): Acute-advised to finish Medrol Dosepak. Recommended Mucinex [...] 02/02/2019 Assessment & Plan (10/21/2024 8:31 AM MANAGER VIDEO): Chronic. Stable. She is no longer on [...] (02/02/2019 11:33 AM CDT): Will refer to precast molder for further guidance Update me after the visit Allergic rhinitis 04/30/2018 Assessment & Plan (10/21/2024 8:30 AM MANAGER VIDEO): Chronic. No recent flare-ups. Continue Zyrtec and Flonase as needed Assessment & Plan (10/31/2021 10:49 AM MANAGER VIDEO): Continue zyrtec Well adult exam 08/11/2017 Overview (10/21/2024): Encouraged a healthy diet, and regular physical activity to her level Wear sun screen, seat belts No texting/drinking and driving Health Maintenance: Last PAP: 02/2023, precast molder Last Tdap: 05/2017 Last Flu: up to date Last COVID: encouraged Last RSV: up to date Assessment & Plan (10/21/2024 8:34 AM MANAGER VIDEO): Health Maintenance: 10/21/24 Last PAP: 02/2023, precast molder Last Tdap: 05/2017 Last Flu: up to date Last COVID: encouraged Last RSV: up to date Labs during done through [facility]. Will complete employer form when needed. Assessment & Plan (10/31/2021 10:47 AM MANAGER VIDEO): Encouraged a healthy diet, and regular physical activity to her level Wear sun screen, seat belts No texting/drinking and driving Health Maintenance: Last PAP: will refer to DENTURE CONTOUR WIRE SPECIALIST Last Tdap: check immunization record Last Flu:encouraged Last COVID: due for booster Fibromyalgia affecting multiple sites 12/26/2016 Insomnia 09/17/2016 Temporomandibular joint disorder 05/28/2016 Exercise-induced asthma 05/02/2016 Assessment & Plan (10/21/2024 8:30 AM MANAGER VIDEO): Chronic. No recent flare-ups. Continue albuterol inhaler as needed. Assessment & Plan (02/05/2022 8:55 AM CDT): With possible exacerbation- will start a medrol dose pack Reviewed the risks/beneits She can use her inhaler every 4-6 hours to help Update me in 48 hours Call for questions Assessment & Plan (10/31/2021 10:50 AM MANAGER VIDEO): Albuterol refilled Continue to monitor her symptoms Encouraged flu vaccine Call for questions or concerns Frequent headaches 05/02/2016 Assessment & Plan (10/21/2024 8:31 AM MANAGER VIDEO): Chronic. Improved. Monitor Hx of ovarian cyst 05/02/2016 Assessment & Plan (02/02/2019 11:33 AM CDT): Ultrasound reviewed [facility] Update me after the visit Call for questions or concerns Panic attacks 05/02/2016 Assessment & Plan (10/21/2024 8:32 AM MANAGER VIDEO): Chronic. Occurring occasionally. Usually recovers without medication. [...] Encounters Date Type Department Care Team Description 06/28/2025 7:30 AM CDT Office Visit [facility] Family Medicine [address] [place] [phone] Rupal Zhong, BRIAN Acute bilateral low back pain without sciatica (Primary Dx); Fibromyalgia affecting multiple sites from Last 3 Months Immunizations Immunization Administration Dates Next Due DTaP 5 Pertussis 01/23/1999, 6,1995,05/21,1995 HPV, Unspecified 07/14/2009,01/05/2009, 9 Hep A, Unspecified 10/18/2008,05/13/2006 Hep B, Unspecified 1995,1995, 995 HiB 04/20/1996, 5,1995,03/26 IPV 01/23/1999, 5,1995,03/26 Influenza, Quadrivalent, Spl it, Preservative Free, Intramuscular 08/14/2023,01/21/2022,12/31/2019 Influenza, Trivalent, Preser vative Free, Intramuscular 07/12/2024 Influenza, Unspecified 06/13/2025(Deferr ed: Patient decision),07/11/2024,07/13/2022,2020,2015,08/13/2010,10/18/2008 MMR 01/23/1999,04/20/1996 Meningococcal ACWY, Unspecified 10/18/2008 PPD TEST 10/26/2024,01/21/2022 AQUA PURE SARS-CoV-2 Monovalent Vaccination (12+ Yrs) PURPLE 01/25/2022,01/25/2021,01/07/2021 [...] = 0.6 oz pur e alcohol) SOCIALLY PHQ-2 Answer Date Recorded PHQ-2 Total Score (If total score is 3 or more points, staff should administer the PHQ-9) 0 06/28/2025 PHQ-9 Answer Date Recorded PHQ-9 Total Score 14 10/21/2024 AUDIT-C Answer Date Recorded Q1: How often do you have a drink containing alc ohol? Monthly or less 06/28/2025 Q2: How many drinks containi ng alcohol do you have on a typical day when you are drinking? 1 or 2 06/28/2025 Q3: How often do you have si x or more drinks on one occasion? Never 06/28/2025 Comments Unknown Sex and Gender Information Value Date Recorded Sex Assigned at Not on file Legal Sex Female 7:39 AM MANAGER VIDEO Gender Identity Female 10/01/2024 9:41 AM MANAGER VIDEO Sexual Orientation Not on file Obstetrics History Para Term AB IAB SAB Ectopic Multiple Livin g Live Births 0 0 0 0 0 0 0 0 0 0 0 Last Filed Vital Signs Vital Sign Reading Time Taken Comments Blood Pressure 110/70 06/28/2025 7:46 AM CDT Pulse 78 06/28/2025 7:46 AM CDT Temperature 36.7 C (98 F) 06/28/2025 7:46 AM CDT Respiratory Rate 16 06/28/2025 7:46 AM CDT Oxygen Saturation 98% 06/28/2025 7:46 AM CDT Inhaled Oxygen Concentration - - Weight 68 kg (150 lb) 06/28/2025 7:46 AM CDT Height 166.4 cm (5' 5.5) 06/28/2025 7:46 AM CDT Body Mass Index 24.58 06/28/2025 7:46 AM CDT Plan of Treatment Health Maintenance Due Date Last Done Comments Hepatitis C Screening 1995 Pneumococcal vaccine <65 (1 of 2 - PCV) 2014 Covid-19 Vaccine (2024-2 6 season) 2025 01/25/2022, 01/21/2022, 01/25/2021, Additional history exists Influenza Vaccine (#1) 2025 , 07/11/2024, 08/14/2023, Additional history exists Regular Well Visit/Exam 18-64 10/21/2025, 01/07/2022, 10/31/2021, Additional history exists Cervical Cancer Screening 03/03/2026 03/03/2023, Depression Screening 06/28/2026 06/28/2025, 11/19/2024, 11/03/2024, Additional history exists DTaP/Tdap/Td Vaccine (9 - Td or Tdap) 06/12/2034 06/12/2024, 06/20/2017, 05/13/2006, Additional history exists Hepatitis B Screening Completed 1995 , 1995, 1995 HPV Vaccines Completed 07/14/2009, 12/12, 10/18/2008 Varicella Vaccines Discontinued Procedures Procedure Name Priority Date/Time Associated Diagnosis Comments HM PAP SMEAR Routine 03/03/2023 from Last 3 Months or Most Recently Relevant to Health Maintenance Results * HM PAP SMEAR (03/03/2023) SCRIBED Pap test normal us Historical Provider HEALTH MAINTENANCE Final Result from Last 3 Months or Most Recently Relevant to Health Maintenance Insurance [facility] [employer] PPO POS Care Teams Patient Liaison Relationship Specialty Start Date End Date Shira Bartlett MD [address] [place], [place] [phone] PCP - General Family Medicine 03/14/21
== END 2025-09-05 13:38 | disposition home or self-care (01) ==
LOC: ANHLAB 13:40
PROVIDERS: PCP Family Medicine; Visit Provider Advanced Practice Midwife
DX: R53.83 Other fatigue (principal)
CPT/HCPCS: 36415; 80053; 82306; 82607; 82746; 84439; 84443; 85025